=== PATIENT | female | born 1970 | race Caucasian/White ===

== ENCOUNTER 2020-07-05 10:48 | Inpatient (IN) | payer OTHER, SELFPAY ==
[2020-07-05] VITALS (16 sets, daily range): BP systolic 117–139; BP diastolic 47–94; PULSE 95–134; RESP 16–26; TEMP 36.4–36.9; O2SAT 85–96; BMI 32.3; BMI 31.4
--- NOTE | 2020-07-05 10:43 | ECG_ITS ---
APPROVED REPORT Exam: Resting ECG HR:133 bpm ECG Measurements Heart Rate 133 AXES VT 140 P 57 QRSd 78 QRS 41 QT 292 T 74 QTc 434 Conclusion Sinus tachycardia with fusion complexes Possible Anterior infarct, age undetermined Abnormal ECG Electronically signed by : Maxim Blanco, 07/06/2020 09:41:48
--- NOTE | 2020-07-05 10:48 | HMH.EDGENADL ---
ED Disposition Clinical Impression: Pneumonia Qualifiers: Pneumonia type: due to unspecified organism Laterality: right Lung location: lower lobe of lung Qualified Code(s): J18.9 - Pneumonia, unspecified organism Congestive heart failure Qualifiers: Heart failure type: unspecified Heart failure chronicity: acute Qualified Code(s): I50.9 - Heart failure, unspecified Respiratory failure with hypoxia Qualifiers: Chronicity: acute Qualified Code(s): J96.01 - Acute respiratory failure with hypoxia Disposition: Admitted As Inpatient Condition on Discharge: Fair - Critical Care Critical Care Time: Yes Attestation: On , the high probability of a clinically significant, sudden or life threatening deterioration of the following system(s) required my full and direct attention, intervention and personal management. The time I documented below is in addition to time spent performing reported procedures but includes the following listed in this critical care notation. Total Critical Care Time: 35 Vital system(s) involved:: Respiratory Failure My critical care processes included: Assessment & monitoring of V/S, Initial and Re-exams, Data Review/Interpretation, Coordinating Care, Medication Orders and management, Documentation Medical Decision Making - Medical Records Medical records reviewed: Yes: I reviewed the patient's medical records. - Jeffy Inquiry Pt receiving controlled substance: No Vital Signs: 07/05/20 10:48 07/05/20 11:11 07/05/20 11:45 Temperature 98.1 F Temperature Source Oral Pulse Rate Pulse Rate [Right] 134 H 111 H 120 H Respiratory Rate 26 H Blood Pressure Blood Pressure [Right Arm] 131/93 H 131/93 H 127/83 Blood Pressure Mean [Right Arm] 105 105 97 Blood Pressure Source [Right Arm] Automatic Cuff Automatic Cuff Blood Pressure Position [Right Arm] Sitting Sitting 02 Sat by Pulse Oximetry 85 L 93 L 96 Oxygen Delivery Method Room Air Nasal Cannula Nasal Cannula Oxygen Flow Rate (LPM) 2 2 07/05/20 12:02 07/05/20 12:31 07/05/20 13:00 Temperature Temperature Source Pulse Rate Pulse Rate [Right] 111 H 118 H 125 H Respiratory Rate 22 Blood Pressure Blood Pressure [Right Arm] 139/88 128/94 H 121/85 Blood Pressure Mean [Right Arm] 105 105 97 Blood Pressure Source [Right Arm] Automatic Cuff Automatic Cuff Blood Pressure Position [Right Arm] Sitting Sitting 02 Sat by Pulse Oximetry 95 95 96 Oxygen Delivery Method Nasal Cannula Nasal Cannula Nasal Cannula Oxygen Flow Rate (LPM) 2 2 2 07/05/20 13:13 07/05/20 14:00 07/05/20 14:23 Temperature 98.5 F Temperature Source Oral Pulse Rate Pulse Rate [Right] 114 H 114 H Respiratory Rate 22 Blood Pressure Blood Pressure [Right Arm] 119/47 L 117/88 Blood Pressure Mean [Right Arm] 71 97 Blood Pressure Source [Right Arm] Automatic Cuff Automatic Cuff Blood Pressure Position [Right Arm] Supine Sitting 02 Sat by Pulse Oximetry 96 95 Oxygen Delivery Method Room Air Room Air Nasal Cannula Oxygen Flow Rate (LPM) 2 07/05/20 14:32 07/05/20 14:33 Temperature 98.2 F Temperature Source Pulse Rate 112 H Pulse Rate [Right] Respiratory Rate 22 Blood Pressure 131/62 Blood Pressure [Right Arm] Blood Pressure Mean [Right Arm] Blood Pressure Source [Right Arm] Blood Pressure Position [Right Arm] 02 Sat by Pulse Oximetry Oxygen Delivery Method Nasal Cannula Nasal Cannula Oxygen Flow Rate (LPM) 2 - Lab Data Lab results reviewed: Yes: I reviewed the patient's lab results. Lab Results 07/05/20 10:50: ABG pH 7.26 L 07/05/20 10:53: WBC 11.0 H, RBC 5.25, Hgb 15.4, Hct 48.8 H, MCV 93.1, MCH 29.4, MCHC 31.6 L, RDW 13.3, Plt Count 284, MPV 8.7, Neut % (Auto) 62.0, Lymph % (Auto) 31.6, [place] % (Auto) 3.0, Eos % (Auto) 2.7, Baso % (Auto) 0.6, Neut # (Auto) 6.8, Lymph # (Auto) 3.5, [place] # (Auto) 0.3, Eos # (Auto) 0.3, Baso # (Auto) 0.1 07/05/20 10:53: Sodium 139, Potassium 4.0, Chloride 104, Carbon Dioxide
--- NOTE | 2020-07-05 10:49 | PC.NURSE ---
RT at bedside
--- NOTE | 2020-07-05 10:50 | XR_ITS ---
PROCEDURE: XR CHEST PORTABLE CLINICAL HISTORY: SOB Shortness of breath COMPARISON: No exams were available for comparison FINDINGS: There is cardiomegaly with borderline pulmonary venous congestion . Patchy density is present in the right lower lobe consistent with an area of infiltrate. No acute bony abnormalities. IMPRESSION: Borderline CHF with right lower lobe infiltrate Dictated by: Kavin Ledbettre MD 07/05/2020 12:13 Kavin Ledbetter MD in OV 07/05/2020 12:13
[2020-07-05 10:54] LABS: ABG PH 7.26 mmol/L (7.35-7.45)
[2020-07-05 11:03] LABS: ABG Base Excess -4.5 mmol/L (-2.4-2.3); ABG HCO3 22.5 mmhg (22.0-26.0); ABG Oxygen Saturation 97 % (90-100); ABG PH 7.26 mmol/L (7.35-7.45); ABG PO2 99.1 mmhg (80-100); ABG TCO2 24.1 mmhg (23-27)
[2020-07-05 11:04] LABS: Allen's Test Acceptable; Oxygen 3l %; Source Right Radial
[2020-07-05 11:05] LABS: ABG PCO2 50.9 mmhg (35.0-45.0)
[2020-07-05 11:06] LABS: Basophils # 0.1 K/mm3 (0-0.2); Basophils % 0.6 % (0.1-2.0); Eosinophils # 0.3 K/mm3 (0.0-0.4); Eosinophils % 2.7 % (0.1-12.0); Hematocrit 48.8 % (37.0-47.0); Hemoglobin 15.4 g/dL (12.2-16.2); Lymphocytes # 3.5 K/mm3 (0.7-4.5); Lymphocytes % 31.6 % (10-50); Mean Corpuscular HGB Conc 31.6 g/dL (31.8-35.4); Mean Corpuscular Hemoglobin 29.4 pg (27.0-31.2); Mean Corpuscular Volume 93.1 fl (81-99); Mean Platelet Volume 8.7 fl (7.4-10.4); Monocytes # 0.3 K/mm3 (0.1-1.0); Neutrophils # 6.8 K/mm3 (1.8-7.8); Platelet Count 284 K/mm3 (142-424); Red Blood Count 5.25 M/mm3 (4.20-5.40); Red Cell Distribution Width 13.3 % (11.5-17.5)
[2020-07-05 11:10] LABS: Chloride 104 mmol/L (98-107); Sodium 139 mmol/L (136-145)
--- NOTE | 2020-07-05 11:10 | PC.NURSE ---
Pt states she is able to breathe better at this time.
[2020-07-05 11:13] LABS: Alanine Aminotransferase 16 U/L (12-78); Albumin Level 4.3 g/dl (3.5-5.0); Albumin/Globulin Ratio 1.2 (1.1-1.8); Alkaline Phosphatase 102 U/L (38-126); Aspartate Amino Transferase 22 U/L (14-36); Bilirubin,Total 0.5 mg/dl (0.2-1.3); Blood Urea Nitrogen 10 mg/dl (7-17); Carbon Dioxide 26 mmol/L (22.0-30.0); Creatinine Clearance Estimated 135 mL/min (50-200); Estimated Glomerular Filt Rate 88 ml/min (>60); GFR (African American) 106 ML/MIN (>60); Globulin 3.7 g/dL (1.3-3.2)
[2020-07-05 11:14] LABS: Calcium 9.2 mg/dl (8.4-10.2); Glucose 166 mg/dl (74-100)
[2020-07-05 11:23] LABS: NT Pro Brain Natriuretic Pep. 731 pg/mL (0-125)
[2020-07-05 11:27] LABS: Troponin I < 0.01 ng/ml (0.00-0.034)
[2020-07-05 11:33] LABS: Coronavirus 19 IgG Antibody Negative (Negative); Coronavirus 19 IgM Antibody Negative (Negative)
--- NOTE | 2020-07-05 12:01 | PC.NURSE ---
Rad at bedside
--- NOTE | 2020-07-05 12:29 | PC.NURSE ---
ER speaking to Dr Miguel about pt. Dr Miguel is confectionery drops machine operator for service.
--- NOTE | 2020-07-05 12:35 | PC.NURSE ---
Bank Consultant aware of admission, she states as soon as pt's COVID swab is resulted he will give a bed assignment. Pt updated and aware it may take a little time to come back.
[2020-07-05 12:41] LABS: Adenovirus,PCR Not Detected (NotDetected); Bordetella Pertussis Not Detected (NotDetected); Chlamydophila Pneumoniae, PCR Not Detected (NotDetected); Coronavirus 19, PCR Not Detected (NotDetected); Coronavirus 229E Not Detected (NotDetected); Coronavirus NL63 Not Detected (NotDetected); Coronavirus OC43 Not Detected (NotDetected); Coronovirus HKU1,PCR Not Detected (NotDetected); Human Metapneumovirus Not Detected (NotDetected); Influenza A, PCR Not Detected (NotDetected); Influenza AH1, 2009 Not Detected (NotDetected); Influenza AH1, PCR Not Detected (NotDetected); Influenza AH3,PCR Not Detected (NotDetected); Influenza B, PCR Not Detected (NotDetected); Mycoplasma Pneumoniae, PCR Not Detected (NotDetected); Parainfluenza 1, PCR Not Detected (NotDetected); Parainfluenza 2, PCR Not Detected (NotDetected); Parainfluenza 3, PCR Not Detected (NotDetected); Parainfluenza 4, PCR Not Detected (NotDetected); Respiratory Syncytial Virus Not Detected (NotDetected); Rhinovirus/Enterovirus Not Detected (NotDetected)
--- NOTE | 2020-07-05 13:42 | PC.NURSE ---
PT AWAITING RESULTS FROM COVID TEST PRIOR TO ADMISSION
--- NOTE | 2020-07-05 14:14 | PC.NURSE ---
Report given to Jenn
--- NOTE | 2020-07-05 14:21 | PC.NURSE ---
Lab at bedside
--- NOTE | 2020-07-05 15:26 | PC.NURSE ---
REPORT RECEIVED FROM DECEMBER IN ER. PATIENT ARRIVED TO FLOOR AT 1452. MD TOBAR CALLED AND AWARE MD AT BEDSIDE ROUNDING AT 1514. PATIENT A&OX4. NO C/O PAIN. NO C/O SOA, COUGH. PATIENT ON 2LPM N/C. PATIENT UP AD FANNIE- STEADY GAIT. NO C/O PAINFUL BURNING URINATION PATIENT VOIDING FINE VIA RESTROOM. SKIN INTACT. SAFETY MEASURES IN PLACE NO ISSUES AT THIS TIME.
[2020-07-05 15:31] LABS: Troponin I 0.01 ng/ml (0.00-0.034)
--- NOTE | 2020-07-05 15:37 | HMH.HP ---
*Admission Date: 07/05/20 *Chief complaint: Shortness of breath *History of present illness: This is a 50-year-old white female with a history of hypertension and congestive heart failure who states that she has been more short of breath for the past week but since yesterday has been much worse and it is limiting her activities. She was hospitalized in 2011 with an episode of congestive heart failure but no clear etiology. Sounds as if she had an ischemic work-up including angiography which was negative. Since then she has used Lasix prn if she becomes short of breath. However the Lasix has not helped her symptoms this time. She denies cough, fever, hemoptysis, pleuritic chest pain, loss of taste or smell. She presented to the emergency room with these complaints and was worked up. Room air sat on arrival to the ER was 85%. She was placed on 2 L of nasal oxygen and her O2 sats have been stable in the 90s. White count was slightly elevated at 11,000. BNP was elevated at 731. Chest x-ray showed borderline CHF and a right lower lobe infiltrate. Blood gas showed pH 7.26 with a PCO2 of 50. COVID testing with serology and PCR both negative. [facility] History 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: Reports:: Congestive Heart Failure, Hypertension Denies:: Cancer, Diabetes Mellitus Type 1, Diabetes Mellitus Type 2, MRSA *Have you ever received a pneumonia vaccine?: No (refused) *Have you received a flu vaccine this season?: No Other Surgeries: Yes: Amputation: No - *Social History Last grade of school completed: High school graduate Smoking Status: Former smoker Alcohol Intake: never Substance Use Type: denies use *Occupational Status:: employed Household Members: significant other *Travel in the last 8 weeks: None Family Hx:: Diabetes, Heart Attack, Hyperlipidemia, Hypertension, Kidney Disease, Stroke Review of Systems - Constitutional Denies body ache(s), Denies chills - Eyes Denies change in vision - ENT Reports hoarseness, Denies nasal discharge - *Cardiovascular Reports shortness of breath with activity, Denies chest pain, Denies rapid, pounding, or irregular heartbeat, Denies foot swelling - *Respiratory Denies chest congestion, Denies cough, Denies coughing up blood - *Gastrointestinal Denies abdominal pain, Denies loose stools, Denies heartburn, Denies black, tarry stools - *Genitourinary Denies abnormal periods, Denies painful urination - *Musculoskeletal Denies joint pain - *Neurologic Denies confusion, Denies dizziness Meds Home Medications Medication Instructions Recorded Confirmed Type aspirin 81 mg tablet,delayed 81 mg PO DAILY 07/10/18 07/05/20 History release cetirizine 10 mg capsule 10 mg PO DAILY 07/10/18 07/05/20 History furosemide 20 mg tablet 20 mg PO DAILY 07/10/18 07/05/20 History lisinopril 10 mg tablet 10 mg PO DAILY 07/10/18 07/05/20 History Allergies Allergy/AdvReac Type Severity Reaction Status Date / Time No Known Allergies Allergy Verified 07/05/20 11:04 Exam Vital signs and Labs for Last 24 Hours: Temp Pulse Resp BP Pulse Ox 98.2 F 112 H 22 131/62 95 07/05/20 14:33 07/05/20 14:33 07/05/20 14:33 07/05/20 14:33 07/05/20 15:23 Laboratory Results - last 24 hr 07/05/20 10:50: ABG pH 7.26 L 07/05/20 10:53: WBC 11.0 H, RBC 5.25, Hgb 15.4, Hct 48.8 H, MCV 93.1, MCH 29.4, MCHC 31.6 L, RDW 13.3, Plt Count 284, MPV 8.7, Neut % (Auto) 62.0, Lymph % (Auto) 31.6, [place] % (Auto) 3.0, Eos % (Auto) 2.7, Baso % (Auto) 0.6, Neut # (Auto) 6.8, Lymph # (Auto) 3.5, [place] # (Auto) 0.3, Eos # (Auto) 0.3, Baso # (Auto) 0.1 07/05/20 10:53: Sodium 139, Potassium 4.0, Chloride 104, Carbon Dioxide 26, Anion Gap 13.0, BUN 10, Creatinine 0.70, Estimated Creat Clear 135, Estimated GFR 88, Est GFR ( Amer) 106, Glucose 166 H, Calcium 9.2, Total Bilirubin 0.5, AST 22, ALT 16, Alkaline Phosphatase 102, Troponin I < 0.01, Total Protein 8.0, Albumin 4.3, Globulin 3.7 H, Albumin/Globulin Ratio 1
--- NOTE | 2020-07-05 16:59 | PC.NURSE ---
visitor at bedside, safety measures in place. no issues at this time.
[2020-07-05 17:59] LABS: Troponin I 0.03 ng/ml (0.00-0.034)
[2020-07-06] VITALS (14 sets, daily range): BP systolic 104–145; BP diastolic 53–86; PULSE 80–120; RESP 18–20; TEMP 36.6–36.8; O2SAT 95–98; BMI 31.3
[2020-07-06 06:50] LABS: Basophils % 0.1 % (0.1-2.0); Eosinophils # 0.2 K/mm3 (0.0-0.4); Eosinophils % 1.3 % (0.1-12.0); Hematocrit 42.7 % (37.0-47.0); Lymphocytes # 0.9 K/mm3 (0.7-4.5); Lymphocytes % 5.6 % (10-50); Mean Corpuscular Hemoglobin 29.1 pg (27.0-31.2); Monocytes # 0.2 K/mm3 (0.1-1.0); Monocytes % 1.3 % (1.7-9.3); Neutrophils # 15.1 K/mm3 (1.8-7.8); Neutrophils % 91.7 % (37.0-80.0); Platelet Count 225 K/mm3 (142-424); Red Cell Distribution Width 13.3 % (11.5-17.5); White Blood Count 16.5 K/mm3 (4.8-10.8)
[2020-07-06 06:51] LABS: Hemoglobin 13.7 g/dL (12.2-16.2)
[2020-07-06 06:52] LABS: MANUAL DIFFERENTIAL MANUAL DIFFERENTIAL (MANUAL DIFF)
[2020-07-06 06:53] LABS: Chloride 102 mmol/L (98-107); Potassium 3.7 mmoL/L (3.5-5.1); Sodium 138 mmol/L (136-145)
[2020-07-06 06:56] LABS: Anion Gap 14.7 mEq/L (5-15); Blood Urea Nitrogen 13 mg/dl (7-17); Carbon Dioxide 25 mmol/L (22.0-30.0); Creatinine Clearance Estimated 153 mL/min (50-200); Estimated Glomerular Filt Rate 105 ml/min (>60); GFR (African American) 127 ML/MIN (>60); Glucose 197 mg/dl (74-100)
[2020-07-06 07:02] LABS: Lymphocytes % 4 % (10-50); Neutrophils % 92 % (42-76); Platelet Estimate Normal; RBC Morphology Normal; Total Cells Counted 100
--- NOTE | 2020-07-06 08:15 | PC.NURSE ---
RT sent sputum sample to lab @ 8345
--- NOTE | 2020-07-06 09:13 | HMH.PHAVTE ---
[facility] Pharm[facility] VTE Monitoring - Patient Demographics Admission date: 07/06/20 Report Date: 07/06/20 Time: 09:13 Allergies/Adverse Reactions: Patient Allergies No Known Allergies Allergy (Verified 07/05/20 11:04) Height: 1.68 m Weight: 88.451 kg Patient Problems: Current Active Problems Pneumonia (Acute) Congestive heart failure (Acute) Respiratory failure with hypoxia (Acute) Right lower lobe pneumonia (Acute) Hypertension (Acute) Hypoxemia (Acute) - VTE Risk Labs: VTE Related Lab Results Hgb 13.7 g/dL (12.2-16.2) D 07/06/20 06:33 Hct 42.7 % (37.0-47.0) 07/06/20 06:33 Plt Count 225 K/mm3 (142-424) 07/06/20 06:33 BUN 13 mg/dl (7-17) D 07/06/20 06:33 Creatinine 0.60 mg/dl (0.52-1.04) 07/06/20 06:33 Estimated Creat Clear 153 mL/min (50-200) 07/06/20 06:33 Was VTE Risk Assessment Performed: Yes VTE Score: 4 VTE Risk Level: Low Risk - Prophylaxis Types of VTE Prophylaxis: TEDS Knee High (FRANCISCO HOSE ORDERED)
--- NOTE | 2020-07-06 09:17 | HMH.ACPN2 ---
Internal Medicine - PN: Subj *Date: 07/06/20 *Time: 09:17 Interval history: States she is breathing better today. No heaviness in her chest. She still denies any cough. No chest pain. Exam Vital signs and Labs for Last 24 Hours: Temp Pulse Resp BP Pulse Ox 98.0 F 110 H 20 134/78 97 07/06/20 07:53 07/06/20 08:10 07/06/20 07:53 07/06/20 07:53 07/06/20 08:10 Laboratory Results - last 24 hr 07/05/20 10:50: ABG pH 7.26 L 07/05/20 10:53: WBC 11.0 H, RBC 5.25, Hgb 15.4, Hct 48.8 H, MCV 93.1, MCH 29.4, MCHC 31.6 L, RDW 13.3, Plt Count 284, MPV 8.7, Neut % (Auto) 62.0, Lymph % (Auto) 31.6, [place] % (Auto) 3.0, Eos % (Auto) 2.7, Baso % (Auto) 0.6, Neut # (Auto) 6.8, Lymph # (Auto) 3.5, [place] # (Auto) 0.3, Eos # (Auto) 0.3, Baso # (Auto) 0.1 07/05/20 10:53: Sodium 139, Potassium 4.0, Chloride 104, Carbon Dioxide 26, Anion Gap 13.0, BUN 10, Creatinine 0.70, Estimated Creat Clear 135, Estimated GFR 88, Est GFR ( Amer) 106, Glucose 166 H, Calcium 9.2, Total Bilirubin 0.5, AST 22, ALT 16, Alkaline Phosphatase 102, Troponin I < 0.01, Total Protein 8.0, Albumin 4.3, Globulin 3.7 H, Albumin/Globulin Ratio 1.2 07/05/20 10:53: Lactate 2.0 07/05/20 10:53: NT-Pro-B Natriuret Pep 731 H 07/05/20 10:53: SARS-CoV-2 IgG Ab (Rapid) Negative, SARS-CoV-2 IgM Ab (Rapid) Negative 07/05/20 11:01: Specimen Source Right radial, O2 % 3l, ABG pH 7.26 L, ABG pCO2 50.9 H, ABG pO2 99.1, ABG HCO3 22.5, ABG Total CO2 24.1, ABG O2 Saturation 97, ABG Base Excess -4.5 L, Kavin Test Acceptable 07/05/20 12:34: Chlamy pneumoniae PCR Not detected, Adenovirus (PCR) Not detected, B. pertussis DNA (PCR) Not detected, Coronavirus OC43 (PCR) Not detected, Coronavirus HKU1 (PCR) Not detected, Coronavirus 229E (PCR) Not detected, SARS-CoV-2 (PCR) Not detected, Coronavirus NL63 (PCR) Not detected, Human Metapneumovir PCR Not detected, Influenza A (H1) PCR Not detected, Influ A (H1N1/09) PCR Not detected, Influenza A (H3) PCR Not detected, Influenza Type A (PCR) Not detected, Influenza Type B (PCR) Not detected, M. pneumoniae (PCR) Not detected, Parainfluenza 1 (PCR) Not detected, Parainfluenza 2 (PCR) Not detected, Parainfluenza 3 (PCR) Not detected, Parainfluenza 4 (PCR) Not detected, RSV (PCR) Not detected, Entero/Rhino (PCR) Not detected 07/05/20 14:20: Troponin I 0.01 07/05/20 16:20: Troponin I 0.03 07/06/20 06:33: Sodium 138, Potassium 3.7, Chloride 102, Carbon Dioxide 25, Anion Gap 14.7, BUN 13 D, Creatinine 0.60, Estimated Creat Clear 153, Estimated GFR 105, Est GFR ( Amer) 127, Glucose 197 H, Calcium 9.0 07/06/20 06:33: WBC 16.5 H D, RBC 4.70, Hgb 13.7 D, Hct 42.7, MCV 91.0, MCH 29.1, MCHC 32.0, RDW 13.3, Plt Count 225, MPV 8.0, Neut % (Auto) 91.7 H, Lymph % (Auto) 5.6 L, [place] % (Auto) 1.3 L, Eos % (Auto) 1.3, Baso % (Auto) 0.1, Neut # (Auto) 15.1 H, Lymph # (Auto) 0.9, [place] # (Auto) 0.2, Eos # (Auto) 0.2, Baso # (Auto) 0.0, Total Counted 100, Neutrophils % (Manual) 92 H, Band Neutrophils % 4.0, Lymphocytes % (Manual) 4 L, Platelet Estimate Normal, RBC Morphology Normal I & O for Last 24 hours: Intake & Output 07/03/20 07/04/20 07/05/20 07/06/20 11:59 11:59 11:59 11:59 Intake Total 820 / 820 Balance 820 / 820 Weight 200 lb 195 lb Microbiology Reports for the Last 24 Hours: Microbiology 07/06/20 08:15 Sputum - Expectorated Sputum Gram Stain - Final 07/06/20 08:15 Sputum - Expectorated Sputum Sputum Culture - Final Narrative: She is alert and oriented and in no distress. Color is normal. Lungs are clear to auscultation. Heart is regular with no murmurs or ectopy. Extremities no edema. Assessment and Plan (1) Right lower lobe pneumonia Status: Acute Category: Medical Code(s): J18.9 - Pneumonia, unspecified organism (2) Hypoxemia Status: Acute Category: Medical Code(s): R09.02 - Hypoxemia (3) Congestive heart failure Status: Acute Qualifiers: Heart failure type: unspecified Heart failure chronicity:
--- NOTE | 2020-07-06 15:26 | PC.NURSE ---
Spoke with Suzanne Metz about Duo nebs, pt stated that she felt that they were increasing her HR. RN going to call doctor and see if we can get it switched to a different medication.
--- NOTE | 2020-07-06 17:59 | PC.NURSE ---
PT IS SITTING ON THE SOB WITH FAMILY IN THE ROOM. EARLY THIS MORNING WHEN PT HAD ROCEPHIN RUNNING HER FACE AND NECK BECAME FLUSHED AND SHE WAS REAL JITTERY. PT HAD ROCEPHIN YESTERDAY AND DID NOT HAVE ANY ISSUES. HEART RATE WAS ALSO ELEVATED. PT RECEIVED AN ALBUTEROL TREATMENT A FEW MIN BEFORE THE ELEVATED HR/FLUSHED FACE. WAS ON THE FLOOR AT THE TIME AND STATED TO CONTINUE TO MONITOR PT. WHEN PT GOT THE NEXT ALBUTEROL TREATMENT SHE EXPERIENCED THE SAME SIDE EFFECTS. CALLED AND HE STATED TO SWITCH TREATMENTS TO XOPENEX. PT HAS BEEN UP IN THE ROOM AMBULATING ALL SHIFT. NO COMPLAINTS OF SOA. O2 SATURATION HAS MAINTAINED 92-95% ON RA T/O THE SHIFT. EATING AND DRINKING WELL. WILL CONTINUE TO MONITOR.
--- NOTE | 2020-07-06 20:06 | PC.NURSE ---
late entry 0600 patent has rested well throughout shift. has denied and soa, remained on 1 l nc per patient request with sats greater than 92%, breath sounds diminished bilateral bases, telemetry monitor show sr. ambulates in room, voids in toilet clear yellow urine. has voiced zero c/opain, nausea or vomiting
--- NOTE | 2020-07-06 22:07 | ECG_ITS ---
APPROVED REPORT Exam: Resting ECG HR:105 bpm ECG Measurements Heart Rate 105 AXES QRSd 94 QRS 19 QT 362 T 73 QTc 478 Conclusion Atrial flutter with variable AV block with premature ventricular or aberrantly conducted complexes Abnormal ECG Electronically signed by : Maxim Blanco, 07/07/2020 15:08:50
--- NOTE | 2020-07-06 22:27 | PC.NURSE ---
2200 patient rang out with call light stating she felt her heart pounding and being extremely shaky. vs obtained bp 149/103, hr 141, rr 18, 96% r/a. patient complained [place] teletypesetter monitor reviewed and showed atrial flutter at 149. stat ekg done, dr. ba reviewed and confirmed atrial flutter. episode lasted less than 10 min before returning to [facility]. dr. alarcon paged and notified of vs, new onset cardiac changes and symptoms. new order to stop breathing treatments. informed patient of plan of care, patient became very tearful stating it just freaked me out . allowed patient to express feelings and answered any questions. rn assured her that teletypesetter monitor is being watched continuously and encouraged her to call out with any further symptoms.
[2020-07-06 22:39] LABS: POC Glucose,Bedside 259 (70-110)
[2020-07-07] VITALS (12 sets, daily range): BP systolic 93–147; BP diastolic 61–96; PULSE 70–120; RESP 18–24; TEMP 36.6–37; O2SAT 94–97; BMI 31.5
--- NOTE | 2020-07-07 04:47 | PC.NURSE ---
patient has had no further c/o of heart fluttering or shakiness. classroom monitor has shown episodes where patient will flip into atrial flutter but only last a few minutes. breath sounds remain diminished in the bases. was on r/a until heart fluttering episode earlier. patient request at that time to have o2 back, sats were 96% on r/a. had no c/o nausea, vomiting or diarrhea. voiding clear yellow urine
--- NOTE | 2020-07-07 07:00 | CA_ITS ---
APPROVED REPORT EXAM: Comprehensive 2D, Doppler, and color-flow Echocardiogram Racecar Driver: Mica Kendall CRT Ht: 5 ft 6 in Wt: 194lbs BSA: 1.97 BP: 131/62 mmHg Indications: Congestive Heart Failure, Shortness of Breath, Atrial Flutter, Hypertension/HDD 2D Dimensions LVOT 2.10 cm (M/F) 1.5-2.5 M-Mode Dimensions RVDd 2.00 cm (0.9-2.6) LA Diam 3.84 cm (1.9-4.0) LVDd 6.77 cm (3.5-5.7) Ao Diam 3.21 cm (2.0-3.7) LVDs 5.89 cm (3.5-5.7) IVSd 0.74 cm (0.6-1.1) PWd 0.80 cm (0.6-1.1) EF (Teich) 27.20% FS 13.00% EDV (Teich) 236.90 mL ESV (Teich) 172.50 mL Aortic Valve AO Peak GR. 6.30 mmHg Pulmonary Valve PV Peak Velocity 139.00 (50-150 cm/s) Tricuspid Valve TR P. Velocity 74.00 cm/s RAP Estimate 10.00 mmHg RVSP 12.20 mmHg Left Ventricle Left atrium is mildly enlarged, left ventricle is mildly dilated, there is mild concentric left ventricular hypertrophy, severe reduced left ventricular systolic function, visually estimated ejection fraction approximately 25 to 30%, left ventricle is globally hypokinetic, there is echodensity present in the left ventricular apex raising the concerns for presence of apical thrombus, repeat study with Definity contrast is recommended. Right Ventricle Right atrium and right ventricle are normal size and contractility. Aortic Valve Aortic valve is minimally thickened and fibrosed, there is no aortic stenosis or aortic insufficiency. Mitral Valve Mitral valve leaflets are minimally thickened, there is no mitral stenosis, there is moderate mitral regurgitation. Tricuspid Valve Tricuspid valve is grossly normal, there is mild tricuspid regurgitation, tricuspid regurgitation jet velocity is inadequate for calculation of the right ventricular systolic pressure. Pulmonic Valve Pulmonic valve is poorly visualized. Great Vessels Aortic root is normal size. Pericardium No significant pericardial effusion noted. Conclusion 1. Mildly enlarged left atrium, dilated left ventricle, reduced left ventricular systolic function, visually estimated ejection fraction 25 to 30%, left ventricle is globally hypokinetic, possibility of left ventricular apical thrombus cannot be excluded, a repeat study with Definity contrast is recommended , diastolic parameters are inconclusive. 2. Moderate mitral and mild tricuspid regurgitation. 3. No significant pericardial effusion noted. Electronically signed by : Vivek Matt, 07/07/2020 19:57:16
--- NOTE | 2020-07-07 08:44 | HMH.CNCARD ---
History of Present Illness Consult date: 07/07/20 Requesting physician: Ronald Miguel Consult reason: congestive heart failure Chief complaint: SOA Additional 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:: 1. History of congestive heart failure and cardiomyopathy, 2012, negative work-up including angiogram per patient. 2. Hypertension 3. History of tobacco use, discontinued 2011 4. Obesity 5. Psoriasis for which she takes Taltz History of present illness: This is a 50-year-old white female with a history of hypertension and congestive heart failure who states that she has been more short of breath for the past week but since yesterday has been much worse and it is limiting her activities. She was hospitalized in 2012 with an episode of congestive heart failure but no clear etiology. Sounds as if she had an ischemic work-up including angiography which was negative. Since then she has used Lasix prn if she becomes short of breath. However the Lasix has not helped her symptoms this time. She denies cough, fever, hemoptysis, pleuritic chest pain, loss of taste or smell. She presented to the emergency room with these complaints and was worked up. Room air sat on arrival to the ER was 85%. She was placed on 2 L of nasal oxygen and her O2 sats have been stable in the 90s. White count was slightly elevated at 11,000. BNP was elevated at 731. Chest x-ray showed borderline CHF and a right lower lobe infiltrate. Blood gas showed pH 7.26 with a PCO2 of 50. COVID testing with serology and PCR both negative. The above for Dr. Miguel Patient confirms diagnosis of congestive heart failure with work-up in 2012 including angiogram without etiology. It was suspected that she had a viral myocarditis and was offered transfer to for further evaluation but declined stating I am not can to be a guinea pig. 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 She does take Lasix as needed for shortness of breath. [facility] History 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: Reports:: Congestive Heart Failure, Hypertension Denies:: Cancer, Diabetes Mellitus Type 1, Diabetes Mellitus Type 2, MRSA *Have you ever received a pneumonia vaccine?: No (refused) *Have you received a flu vaccine this season?: No Other Surgeries: Yes: Amputation: No - *Social History Last grade of school completed: High school graduate Smoking Status: Former smoker Alcohol Intake: never Substance Use Type: denies use *Occupational Status:: employed Household Members: significant other *Travel in the last 8 weeks: None Family Hx:: Diabetes, Heart Attack, Hyperlipidemia, Hypertension, Kidney Disease, Stroke Meds Home Medications Medication Instructions Recorded Confirmed Type aspirin 81 mg tablet,delayed 81 mg PO DAILY 07/10/18 07/05/20 History release cetirizine 10 mg capsule 10 mg PO DAILY 07/10/18 07/05/20 History furosemide 20 mg tablet 20 mg PO DAILY 07/10/18 07/05/20 History lisinopril 10 mg tablet 10 mg PO DAILY 07/10/18 07/05/20 History Ixekizumab [Taltz Syringe] 80 mg SQ MONTHLY 07/06/20 07/06/20 History Allergies Allergy/AdvReac Type Severity Reaction Status Date / Time No Known Allergies Allergy Verified 07/05/20 11:04 Exam Vital signs and Labs for Last 24 Hours: Temp Pulse Resp BP Pulse Ox 98.3 F 103 H 20 147/96 H 96 07/07/20 07:29 07/07/20 07:56 07/07/20 07:29 07/07/20 07:29 07/07/20 07:56 Laboratory Results - last 24 hr 07/06/20 22:20: POC Glucose 259 H I & O for Last 24 hours: Intake & Output 07/04/20 07/05/20 07/06/20 07/07/20 11:59 11:59 11:59 11:59 Intake Total 820 / 820 520 / 520 Balance 820 / 820 520 / 520 Weight 200 lb 195 lb 196 lb 5 oz Microbiology Reports for the Last 24 Hours: Microbiology 07/06/20 08:15 Sputum - Expectorated Sputum Gram Stain - Final 07/06/20 08:15 Sputum - Expectorated Sputum Sputum Culture - Final - Constitutional no acute distress - *Routine Neck Ex
--- NOTE | 2020-07-07 09:28 | HMH.ACPN2 ---
<Linda Andrade - Last Filed: 07/07/20 09:28> Internal Medicine - PN: Subj *Date: 07/07/20 *Time: 08:05 Interval history: Pt is sitting up on the side of the bed without complaint other than SOBOE. She reports nebs treatments were discontinued overnight due to concern for palpitations and she has had no further episodes. She ate well and has been voiding qshift. Exam Vital signs and Labs for Last 24 Hours: Temp Pulse Resp BP Pulse Ox 98.3 F 103 H 20 147/96 H 96 07/07/20 07:29 07/07/20 07:56 07/07/20 07:29 07/07/20 07:29 07/07/20 07:56 Laboratory Results - last 24 hr 07/06/20 22:20: POC Glucose 259 H I & O for Last 24 hours: Intake & Output 07/04/20 07/05/20 07/06/20 07/07/20 11:59 11:59 11:59 11:59 Intake Total 820 / 820 520 / 520 Balance 820 / 820 520 / 520 Weight 200 lb 195 lb 196 lb 5 oz Microbiology Reports for the Last 24 Hours: Microbiology 07/06/20 08:15 Sputum - Expectorated Sputum Gram Stain - Final 07/06/20 08:15 Sputum - Expectorated Sputum Sputum Culture - Final - Constitutional no acute distress - *Routine HEENT Exam Head: Present: normocephalic ENT: Present: mucous membranes moist - *Routine Respiratory Exam Absent: respiratory distress Comments: generally diminished with few scattered wheezes, RLL fine rales - *Routine Cardiovascular Exam Present: RRR - *Routine Abdominal Exam Present: soft, normoactive bowel sounds. Absent: tenderness, distended, guarding, firm, rigid - *Routine Extremities Exam Present: full ROM, pulses intact. Absent: edema, calf tenderness - *Routine Neurological Exam Present: alert, oriented X3, moving all extremities, normal speech Assessment and Plan (1) Right lower lobe pneumonia Status: Acute Category: Medical Code(s): J18.9 - Pneumonia, unspecified organism (2) Hypoxemia Status: Acute Category: Medical Code(s): R09.02 - Hypoxemia (3) Congestive heart failure Status: Acute Qualifiers: Heart failure type: unspecified Heart failure chronicity: acute Qualified Code(s): I50.9 - Heart failure, unspecified Category: Medical Code(s): I50.9 - Heart failure, unspecified (4) Hypertension Status: Acute Category: Medical Code(s): I10 - Essential (primary) hypertension (5) Cardiomyopathy Status: Acute Category: Medical Code(s): I42.9 - Cardiomyopathy, unspecified - Assessment and plan all Dx Assessment and Plan for all problems:: Cardiology note seen and appreciated. Further per Dr. Miguel. <Ronald Miguel - Last Filed: 07/07/20 11:17> Internal Medicine - PN: Subj *Date: 07/07/20 *Time: 11:15 Exam Vital signs and Labs for Last 24 Hours: Temp Pulse Resp BP Pulse Ox 98.6 F 120 H 24 123/89 95 07/07/20 11:07 07/07/20 11:07 07/07/20 11:07 07/07/20 11:07 07/07/20 11:07 Laboratory Results - last 24 hr 07/06/20 22:20: POC Glucose 259 H I & O for Last 24 hours: Intake & Output 07/04/20 07/05/20 07/06/20 07/07/20 11:59 11:59 11:59 11:59 Intake Total 820 / 820 520 / 520 Balance 820 / 820 520 / 520 Weight 200 lb 195 lb 196 lb 5 oz Microbiology Reports for the Last 24 Hours: Microbiology 07/05/20 10:53 Blood Blood Culture - Preliminary NO GROWTH AFTER 48 HOURS 07/05/20 10:53 Blood Blood Culture - Preliminary NO GROWTH AFTER 48 HOURS 07/06/20 08:15 Sputum - Expectorated Sputum Gram Stain - Final 07/06/20 08:15 Sputum - Expectorated Sputum Sputum Culture - Final Assessment and Plan (1) Right lower lobe pneumonia Status: Acute Category: Medical Code(s): J18.9 - Pneumonia, unspecified organism (2) Hypoxemia Status: Acute Category: Medical Code(s): R09.02 - Hypoxemia (3) Congestive heart failure Status: Acute Qualifiers: Heart failure type: unspecified Heart failure chronicity: acute Qualified Code(s): I50.9
--- NOTE | 2020-07-07 10:42 | PC.NURSE ---
patient did have 3 unmeasured voids before urine collection hat was placed in commode. educated on importance of measuring urine.
--- NOTE | 2020-07-07 13:51 | PC.NURSE ---
called and spoke with md office at this time. stated that the patient blood culture bottles came back postive only showing rare gram positive cocci in pairs. they stated they would report this to
--- NOTE | 2020-07-07 15:50 | PC.NURSE ---
patient has done well this shift. has been up in room walking in room independently. earlier in shift some complaints of shortness of breath which has resolved. heart rate at times noted to be 120s and briefly hit 130 however, returned back within patient normal limits. it has remained regular. lungs at beginning had scattered wheezing which at this time is resolved. face has been slightly red at times. some complaints about tape being itchy/irritating. did place 1 l of o2 on briefly at beginning of shift but has not required it since. patient also complained of having a slight bloody nose/ sore throat. she has ate and drank well. good results with lasix. lots of education done with patient on plan of care and new medications. rings out as needed. will continue to monitor.
--- NOTE | 2020-07-07 19:16 | PC.NURSE ---
report given to king
--- NOTE | 2020-07-07 20:52 | PC.NURSE ---
She is A&Ox4. Took a shower and shaved for possible heart cath in the morning. She is hopeful that she will have the heart cath in the morning. Denies SOA. Denies palpitations. Denies weakness. Reports last BM on 07/07/20. She continues on RA at this time.
[2020-07-08] VITALS (24 sets, daily range): BP systolic 92–140; BP diastolic 60–92; PULSE 60–106; RESP 16–20; TEMP 36.6–36.7; O2SAT 92–99; BMI 31.5
--- NOTE | 2020-07-08 | IR_ITS ---
APPROVED REPORT Patient Location: Inpatient PROCEDURES Active coronary angiogram INDICATION New onset cardiomyopathy with ejection fraction 25% Informed consent was obtained prior to the procedure. COMPLICATIONS NONE Estimated Blood Loss: LESS THAN 10 ML TECHNIQUE One percent lidocaine used to anesthetize the right anterior aspect of the wrist. The right radial artery was accessed via the Seldinger technique. A 6 [place] sheath was placed in the right radial artery. 2.5 mg of verapamil, 800 mcg of nitroglycerin, 1mg Lidocaine and 5000 U Heparin were given through the arterial sheath. The trap catheter was also used to perform selective coronary angiogram. At the end of the procedure the sheath was removed good hemostasis was achieved using Traclet band, patient was transferred to the postop holding area in stable condition. ANGIOGRAPHIC RESULTS The left main artery Normal The left anterior descending artery Has proximal tandem 30% stenoses The circumflex artery Dominant with mild luminal irregularities The right coronary artery Large dominant with proximal tandem 30% stenoses The VELASCO ventriculogram reveals Not performed The left ventricular end-diastolic pressure Not measured IMPRESSION Mild to moderate nonflow-limiting coronary artery disease which does not explain patient's cardiomyopathy PLAN 1. Treatment of underlying cardiomyopathy 2. Standard risk factor modification for coronary artery disease 3. LDL goal less than 55 Electronically signed by : Albino Beltrán, 07/08/2020 11:13:35
--- NOTE | 2020-07-08 04:27 | PC.NURSE ---
She states she has been laying flat during the night. She is awake laying on her left side at this time on her computer. No acute changes. She has voided 200mL since receiving aldactone. Her urine is dark yellow, clear.
[2020-07-08 06:28] LABS: Basophils % 0.1 % (0.1-2.0); Eosinophils # 0.1 K/mm3 (0.0-0.4); Eosinophils % 0.3 % (0.1-12.0); Hematocrit 43.9 % (37.0-47.0); Hemoglobin 14.2 g/dL (12.2-16.2); Lymphocytes # 2.8 K/mm3 (0.7-4.5); Lymphocytes % 14.2 % (10-50); Mean Corpuscular HGB Conc 32.4 g/dL (31.8-35.4); Mean Corpuscular Volume 89.6 fl (81-99); Mean Platelet Volume 8.5 fl (7.4-10.4); Monocytes # 0.7 K/mm3 (0.1-1.0); Monocytes % 3.4 % (1.7-9.3); Neutrophils # 16.1 K/mm3 (1.8-7.8); Neutrophils % 81.9 % (37.0-80.0); Platelet Count 244 K/mm3 (142-424); Red Cell Distribution Width 13.8 % (11.5-17.5); White Blood Count 19.6 K/mm3 (4.8-10.8)
[2020-07-08 06:48] LABS: MANUAL DIFFERENTIAL MANUAL DIFFERENTIAL (MANUAL DIFF)
[2020-07-08 06:54] LABS: Chloride 98 mmol/L (98-107); Potassium 3.5 mmoL/L (3.5-5.1); Sodium 139 mmol/L (136-145)
[2020-07-08 06:57] LABS: Anion Gap 14.5 mEq/L (5-15); Blood Urea Nitrogen 25 mg/dl (7-17); Carbon Dioxide 30 mmol/L (22.0-30.0); Creatinine Clearance Estimated 132 mL/min (50-200); Estimated Glomerular Filt Rate 88 ml/min (>60); GFR (African American) 106 ML/MIN (>60)
[2020-07-08 06:58] LABS: Calcium 8.7 mg/dl (8.4-10.2); Glucose 146 mg/dl (74-100)
--- NOTE | 2020-07-08 07:31 | CA_ITS ---
APPROVED REPORT EXAM: Comprehensive 2D, Doppler, and color-flow Echocardiogram Night Shift Supervisor: Mica Kendall CRT Ht: 5 ft 6 in Wt: 194lbs BSA: 1.97 BP: 131/62 mmHg Indications: Shortness of Breath R06.02, Hypertension I10, chf, aflutter Echo Enhancing Agent Indication: Rule out thrombus Agent(s) / Amount(s) Used: Definity 2 cc Comments: Definity exam Conclusion 1. Limited Definity contrast study was performed. 2. The left ventricle is severely globally hypokinetic, ejection fraction approximately 25%, no left ventricular thrombus seen. Electronically signed by : Vivek Matt, 07/08/2020 19:08:15
--- NOTE | 2020-07-08 07:37 | P.PN_ITS ---
Subjective Date: 07/08/20 Time: 07:37 Principal diagnosis: CHF, Cardiomyopathy Interval history: 50 yo WF in bed in NAD. Patient had significant diuresis yesterday and is feeling much better today. Breathing has improved and she was able to lie flat overnight without difficulty. Echocardiogram report shows an EF of 25 to 30%, moderate mitral regurgitation and possible LV thrombus. Limited echo with Definity contrast will be performed today for further evaluation. Exam Vital signs and Labs for Last 24 Hours: Temp Pulse Resp BP Pulse Ox 98.0 F 70 18 111/73 99 07/08/20 04:00 07/08/20 04:00 07/08/20 04:00 07/08/20 04:00 07/08/20 04:00 Laboratory Results - last 24 hr 07/08/20 05:48: WBC 19.6 H, RBC 4.90, Hgb 14.2, Hct 43.9, MCV 89.6, MCH 29.0, MCHC 32.4, RDW 13.8, Plt Count 244, MPV 8.5, Neut % (Auto) 81.9 H, Lymph % (Auto) 14.2, [place] % (Auto) 3.4, Eos % (Auto) 0.3, Baso % (Auto) 0.1, Neut # (Auto) 16.1 H, Lymph # (Auto) 2.8, [place] # (Auto) 0.7, Eos # (Auto) 0.1, Baso # (Auto) 0.0 07/08/20 05:48: Sodium 139, Potassium 3.5, Chloride 98, Carbon Dioxide 30, Anion Gap 14.5, BUN 25 H D, Creatinine 0.70, Estimated Creat Clear 132, Estimated GFR 88, Est GFR ( Amer) 106, Glucose 146 H, Calcium 8.7 I & O for Last 24 hours: Intake & Output 07/05/20 07/06/20 07/07/20 07/08/20 11:59 11:59 11:59 11:59 Intake Total 820 / 820 520 / 520 350 / 350 Output Total 6250 / 6250 Balance 820 / 820 520 / 520 -5900 / -5900 Weight 200 lb 195 lb 196 lb 5 oz 196 lb 3 oz Microbiology Reports for the Last 24 Hours: Microbiology 07/05/20 10:53 Blood Blood Culture - Preliminary 07/06/20 08:15 Sputum - Expectorated Sputum Gram Stain - Final 07/06/20 08:15 Sputum - Expectorated Sputum Sputum Culture - Final 07/05/20 10:53 Blood Blood Culture - Preliminary NO GROWTH AFTER 48 HOURS - Constitutional no acute distress - *Routine Respiratory Exam Present: CTA bilaterally - *Routine Cardiovascular Exam Present: RRR - *Routine Extremities Exam Absent: cyanosis, clubbing, edema - *Routine Neurological Exam Present: alert, oriented X3 Progress Note: A&P (1) Right lower lobe pneumonia Status: Acute (2) Hypoxemia Status: Acute (3) Congestive heart failure Status: Acute (4) Hypertension Status: Acute (5) Cardiomyopathy Status: Acute Assessment and Plan for All Diagnoses:: 1. Congestive heart failure, significant diuresis on IV Lasix and p.o. michelle nolactone. 2. Severe cardiomyopathy with ejection fraction 25-30%, Entresto will start tonight with consideration for carvedilol therapy tomorrow if blood pressure tolerates. History of nonischemic cardiomyopathy, 2011. Plan to proceed with repeat cardiac catheterization today. Continue aspirin therapy at this time. Patient will need LifeVest prior to discharge. 3. Possible left ventricular thrombus, repeat echo with Definity contrast will be performed today 4. Pneumonia, right lower lobe with elevated white count, on antibiotic therapy
[2020-07-08 08:14] LABS: Lymphocytes % 19 % (10-50); Monocytes % 5 % (2-9); Neutrophils % 76 % (42-76); Platelet Estimate Normal; RBC Morphology Normal; Total Cells Counted 100
--- NOTE | 2020-07-08 08:24 | HMH.ACPN2 ---
<Sera Retana - Last Filed: 07/08/20 08:24> Internal Medicine - PN: Subj *Date: 07/08/20 *Time: 08:24 Interval history: States she feels so much better today. She denies shortness of breath and chest pain. She did diurese 6+ liters yesterday without weight loss. She ambulates without difficulty. She is eating well. Per cardiology: Repeat echocardiogram showed an EF of 25 to 30% with Moderate mitral regurgitation and possible LV thrombus. Plan is to repeat limited echo today for further evaluation and also to to proceed with left cardiac catheterization today Exam Vital signs and Labs for Last 24 Hours: Temp Pulse Resp BP Pulse Ox 98.1 F 84 17 108/71 L 97 07/08/20 07:44 07/08/20 07:44 07/08/20 07:44 07/08/20 07:44 07/08/20 07:44 Laboratory Results - last 24 hr 07/08/20 05:48: WBC 19.6 H, RBC 4.90, Hgb 14.2, Hct 43.9, MCV 89.6, MCH 29.0, MCHC 32.4, RDW 13.8, Plt Count 244, MPV 8.5, Neut % (Auto) 81.9 H, Lymph % (Auto) 14.2, [place] % (Auto) 3.4, Eos % (Auto) 0.3, Baso % (Auto) 0.1, Neut # (Auto) 16.1 H, Lymph # (Auto) 2.8, [place] # (Auto) 0.7, Eos # (Auto) 0.1, Baso # (Auto) 0.0, Total Counted 100, Neutrophils % (Manual) 76, Lymphocytes % (Manual) 19, Monocytes % (Manual) 5, Platelet Estimate Normal, RBC Morphology Normal 07/08/20 05:48: Sodium 139, Potassium 3.5, Chloride 98, Carbon Dioxide 30, Anion Gap 14.5, BUN 25 H D, Creatinine 0.70, Estimated Creat Clear 132, Estimated GFR 88, Est GFR ( Amer) 106, Glucose 146 H, Calcium 8.7 I & O for Last 24 hours: Intake & Output 07/05/20 07/06/20 07/07/20 07/08/20 11:59 11:59 11:59 11:59 Intake Total 820 / 820 520 / 520 350 / 350 Output Total 6250 / 6250 Balance 820 / 820 520 / 520 -5900 / -5900 Weight 200 lb 195 lb 196 lb 5 oz 196 lb 3 oz Microbiology Reports for the Last 24 Hours: Microbiology 07/05/20 10:53 Blood Blood Culture - Preliminary 07/06/20 08:15 Sputum - Expectorated Sputum Gram Stain - Final 07/06/20 08:15 Sputum - Expectorated Sputum Sputum Culture - Final 07/05/20 10:53 Blood Blood Culture - Preliminary NO GROWTH AFTER 48 HOURS - Constitutional no acute distress Comments: Sitting on the bedside and appears comfortable. - *Routine Respiratory Exam Present: crackles (Throughout on the right posteriorly) - *Routine Cardiovascular Exam Present: RRR Comments: Monitor showing sinus rhythm at this time - *Routine Abdominal Exam Present: soft, normoactive bowel sounds. Absent: tenderness - *Routine Extremities Exam Absent: edema, calf tenderness - *Routine Neurological Exam Present: alert, oriented X3 Assessment and Plan (1) Right lower lobe pneumonia Status: Acute Category: Medical Code(s): J18.9 - Pneumonia, unspecified organism (2) Hypoxemia Status: Acute Category: Medical Code(s): R09.02 - Hypoxemia (3) Congestive heart failure Status: Acute Qualifiers: Heart failure type: unspecified Heart failure chronicity: acute Qualified Code(s): I50.9 - Heart failure, unspecified Category: Medical Code(s): I50.9 - Heart failure, unspecified (4) Hypertension Status: Acute Category: Medical Code(s): I10 - Essential (primary) hypertension (5) Cardiomyopathy Status: Acute Category: Medical Code(s): I42.9 - Cardiomyopathy, unspecified - Assessment and plan all Dx Assessment and Plan for all problems:: Continue with pulmonary care. She will have a repeat echo today. Plan is for heart cath as well. <Ronald Miguel - Last Filed: 07/08/20 14:02> Internal Medicine - PN: Subj *Date: 07/08/20 *Time: 14:01 Exam Vital signs and Labs for Last 24 Hours: Temp Pulse Resp BP Pulse Ox 98.1 F 90 18 115/81 96 07/08/20 07:44 07/08/20 12:25 07/08/20 12:25 07/08/20 12:25 07/08/20 12:25 Laboratory Results - last 24 hr 07/08/20 05:48: WBC 19.6 H, RBC 4.90, Hgb 14.2, Hct 43.9, MCV 89.6, MCH 29.0, MCHC
--- NOTE | 2020-07-08 10:45 | PC.NURSE ---
Pt off floor to cath lab tech at this time, bedside report given to Shawn Fernandez RN
--- NOTE | 2020-07-08 15:12 | PC.NURSE ---
Patient is s/p cardiac cath, did not require any interventions. Pt is to be fitted for life vest prior to discharge. Pt remains alert and oriented x4, perrla, senior business intelligence analyst equal, no deficits noted, HR reg, no edema noted, lung sounds are diminished t/o, on RA, abd soft and nontender, active bowel sounds in all quads, reports last BM was yesterday, voids per BR independently, urine is yellow and clear, peripheral pulses 2+, ambulates independently, denies any pain or SOA this shift, right radial cath site cdi with no bleeding or hematoma noted, vss, will continue to monitor.
--- NOTE | 2020-07-08 19:16 | PC.NURSE ---
report given to king
[2020-07-09] VITALS: PULSE 80
[2020-07-09 04:00] VITALS: BP 94/58; PULSE 74; PULSE 80; RESP 19; TEMP 36.6; O2SAT 94
--- NOTE | 2020-07-09 04:31 | PC.NURSE ---
shift summary patient has rested well thoughout night. patient started new medications tonight causing lower blood pressures and heart rates then previous days. has had no complaints of palpitation, soa, nausea, vomiting or diarrhea. sats have remained greater than 92% on r/a. breath sounds clear throughout all guevara. vineyard supervisor has been showing sr. clear yellow urine.
[2020-07-09 05:17] VITALS: BMI 30.9
[2020-07-09 08:00] VITALS: BP 122/72; PULSE 82; PULSE 90; RESP 18; TEMP 36.8; O2SAT 96
--- NOTE | 2020-07-09 08:20 | HMH.ACPN ---
Internal Medicine - PN: Subj *Date: 07/09/20 *Time: 08:20 Exam Vital signs and Labs for Last 24 Hours: Temp Pulse Resp BP Pulse Ox 98.2 F 82 18 122/72 96 07/09/20 08:00 07/09/20 08:00 07/09/20 08:00 07/09/20 08:00 07/09/20 08:00 I & O for Last 24 hours: Intake & Output 07/06/20 07/07/20 07/08/20 07/09/20 23:59 23:59 23:59 23:59 Intake Total 1040 / 1040 340 / 340 780 / 780 240 / 240 Output Total 5850 / 5850 2550 / 2550 Balance 1040 / 1040 -5510 / -5510 -1770 / -1770 240 / 240 Weight 88.451 kg 89 kg 88.989 kg 87.146 kg Microbiology Reports for the Last 24 Hours: Microbiology 07/05/20 10:53 Blood Blood Culture - Preliminary Assessment and Plan (1) Right lower lobe pneumonia Status: Acute Category: Medical Code(s): J18.9 - Pneumonia, unspecified organism (2) Hypoxemia Status: Acute Category: Medical Code(s): R09.02 - Hypoxemia (3) Congestive heart failure Status: Acute Qualifiers: Heart failure type: unspecified Heart failure chronicity: acute Qualified Code(s): I50.9 - Heart failure, unspecified Category: Medical Code(s): I50.9 - Heart failure, unspecified (4) Hypertension Status: Acute Category: Medical Code(s): I10 - Essential (primary) hypertension (5) Cardiomyopathy Status: Acute Category: Medical Code(s): I42.9 - Cardiomyopathy, unspecified The patient's infection will respond to the chosen ABx?: Yes Is the patient receiving the right drug, dose, and route?: Yes Could a more targeted ABx be ordered?: No
--- NOTE | 2020-07-09 08:33 | HMH.ACPN2 ---
<Sera Retana - Last Filed: 07/09/20 08:33> Internal Medicine - PN: Subj *Date: 07/09/20 *Time: 08:33 Interval history: Patient states she feels fine today. She is not short of breath at rest or with exertion. She denies chest pain. She had a repeat echocardiogram yesterday which did not show ventricular thrombus. She also had a cardiac cath with the following results: IMPRESSION Mild to moderate nonflow-limiting coronary artery disease which does not explain patient's cardiomyopathy PLAN 1. Treatment of underlying cardiomyopathy 2. Standard risk factor modification for coronary artery disease 3. LDL goal less than 55 Exam Vital signs and Labs for Last 24 Hours: Temp Pulse Resp BP Pulse Ox 98.2 F 82 18 122/72 96 07/09/20 08:00 07/09/20 08:00 07/09/20 08:00 07/09/20 08:00 07/09/20 08:00 I & O for Last 24 hours: Intake & Output 07/06/20 07/07/20 07/08/20 07/09/20 11:59 11:59 11:59 11:59 Intake Total 820 / 820 520 / 520 350 / 350 1010 / 1010 Output Total 7100 / 7100 1300 / 1300 Balance 820 / 820 520 / 520 -6750 / -6750 -290 / -290 Weight 195 lb 196 lb 5 oz 196 lb 3 oz 192 lb 2 oz Microbiology Reports for the Last 24 Hours: Microbiology 07/05/20 10:53 Blood Blood Culture - Preliminary Assessment and Plan (1) Right lower lobe pneumonia Status: Acute Category: Medical Code(s): J18.9 - Pneumonia, unspecified organism (2) Hypoxemia Status: Acute Category: Medical Code(s): R09.02 - Hypoxemia (3) Congestive heart failure Status: Acute Qualifiers: Heart failure type: unspecified Heart failure chronicity: acute Qualified Code(s): I50.9 - Heart failure, unspecified Category: Medical Code(s): I50.9 - Heart failure, unspecified (4) Hypertension Status: Acute Category: Medical Code(s): I10 - Essential (primary) hypertension (5) Cardiomyopathy Status: Acute Category: Medical Code(s): I42.9 - Cardiomyopathy, unspecified - Assessment and plan all Dx Assessment and Plan for all problems:: Continue with pulmonary care. Patient to placed LifeVest today. Is followed by cardiology as well. <Ronald Miguel - Last Filed: 07/09/20 10:01> Internal Medicine - PN: Subj *Date: 07/09/20 *Time: 10:00 Exam Vital signs and Labs for Last 24 Hours: Temp Pulse Resp BP Pulse Ox 98.2 F 82 18 122/72 96 07/09/20 08:00 07/09/20 08:00 07/09/20 08:00 07/09/20 08:00 07/09/20 08:00 I & O for Last 24 hours: Intake & Output 07/06/20 07/07/20 07/08/20 07/09/20 11:59 11:59 11:59 11:59 Intake Total 820 / 820 520 / 520 350 / 350 1010 / 1010 Output Total 7100 / 7100 1300 / 1300 Balance 820 / 820 520 / 520 -6750 / -6750 -290 / -290 Weight 195 lb 196 lb 5 oz 196 lb 3 oz 192 lb 2 oz Microbiology Reports for the Last 24 Hours: Microbiology 07/05/20 10:53 Blood Blood Culture - Preliminary Assessment and Plan (1) Right lower lobe pneumonia Status: Acute Category: Medical Code(s): J18.9 - Pneumonia, unspecified organism (2) Hypoxemia Status: Acute Category: Medical Code(s): R09.02 - Hypoxemia (3) Congestive heart failure Status: Acute Qualifiers: Heart failure type: unspecified Heart failure chronicity: acute Qualified Code(s): I50.9 - Heart failure, unspecified Category: Medical Code(s): I50.9 - Heart failure, unspecified (4) Hypertension Status: Acute Category: Medical Code(s): I10 - Essential (primary) hypertension (5) Cardiomyopathy Status: Acute Category: Medical Code(s): I42.9 - Cardiomyopathy, unspecified - Assessment and plan all Dx Assessment and Plan for all problems:: Patient seen and examined. She rested well last night and states she is feeling good today. Results of heart cath noted. Plan is to fit her for a LifeVest today and should be ready for discharge pending any further cardiology recommendations.
[2020-07-09 09:55] VITALS: BP 94/66; PULSE 92; TEMP 36.8; O2SAT 96
--- NOTE | 2020-07-09 10:03 | HMH.PNCARD ---
Subjective Date: 07/09/20 Time: 09:45 Principal diagnosis: CHF, Cardiomyopathy Interval history: This is a 50-year-old white female who was admitted to the hospital with shortness of breath. The patient was diuresed with IV Lasix. She had an echocardiogram which showed an ejection fraction of 25 to 30% with moderate mitral regurgitation and possible LV thrombus. She had a repeat echo yesterday with Definity contrast, which showed an ejection fraction of 25% with no LV thrombus. She did undergo left cardiac catheterization which showed mild to moderate nonocclusive coronary artery disease. The patient is being treated for dilated cardiomyopathy with carvedilol, Entresto, Lasix and Aldactone. She is tolerating these medications well. Her blood pressure is on the lower side this morning and she states that she does have some nausea right after taking the medicines but this does improve. She denies any chest pain or pressure. She states that her shortness of breath is better. She denies any lower extremity edema. She denies any fever, chills, vomiting, diarrhea, PND or orthopnea. Exam Vital signs and Labs for Last 24 Hours: Temp Pulse Resp BP Pulse Ox 98.2 F 82 18 122/72 96 07/09/20 08:00 07/09/20 08:00 07/09/20 08:00 07/09/20 08:00 07/09/20 08:00 I & O for Last 24 hours: Intake & Output 07/06/20 07/07/20 07/08/20 07/09/20 23:59 23:59 23:59 23:59 Intake Total 1040 / 1040 340 / 340 780 / 780 240 / 240 Output Total 5850 / 5850 2550 / 2550 Balance 1040 / 1040 -5510 / -5510 -1770 / -1770 240 / 240 Weight 195 lb 196 lb 3.382 oz 196 lb 3 oz 192 lb 2 oz Microbiology Reports for the Last 24 Hours: Microbiology 07/05/20 10:53 Blood Blood Culture - Preliminary Narrative: Her telemetry strip is sinus rhythm with a rate of 82. Echo with Definity contrast shows: 1. Limited Definity contrast study was performed. 2. The left ventricle is severely globally hypokinetic, ejection fraction approximately 25%, no left ventricular thrombus seen. Cardiac catheterization shows: ANGIOGRAPHIC RESULTS The left main artery Normal The left anterior descending artery Has proximal tandem 30% stenoses The circumflex artery Dominant with mild luminal irregularities The right coronary artery Large dominant with proximal tandem 30% stenoses The VELASCO ventriculogram reveals Not performed The left ventricular end-diastolic pressure Not measured IMPRESSION Mild to moderate nonflow-limiting coronary artery disease which does not explain patient's cardiomyopathy PLAN 1. Treatment of underlying cardiomyopathy 2. Standard risk factor modification for coronary artery disease 3. LDL goal less than 55 - Constitutional no acute distress, obese - *Routine HEENT Exam Head: Present: normocephalic, atraumatic Eye: Present: EOMI, PERRL ENT: Present: mucous membranes moist - *Routine Neck Exam Present: supple, full ROM, normal carotid upstroke. Absent: JVD, carotid bruit, lymphadenopathy - *Routine Respiratory Exam Present: CTA bilaterally - *Routine Cardiovascular Exam Present: RRR, Normal S1, Normal S2, murmur - *Routine Abdominal Exam Present: soft, normoactive bowel sounds. Absent: tenderness, distended, rebound - *Routine Extremities Exam Present: full ROM, pulses intact, normal capillary refill. Absent: cyanosis, clubbing, edema - *Routine Skin Exam Present: intact, warm. Absent: erythema, rash - *Routine Neurological Exam Present: alert, oriented X3, CN II-XII intact. Absent: sensory deficit, motor deficit Progress Note: A&P (1) Systolic congestive heart failure Status: Acute (2) LV dysfunction Status: Acute (3) Right lower lobe pneumonia Status: Acute (4) Hypoxemia Status: Acute (5) Congestive heart failure Status: Acute (6) Hypertension Status: Acute (7) Cardiomyopathy Status: Acute (8) Coronary artery disease Status: Chronic (9) Hyperlipidemia S
--- NOTE | 2020-07-09 10:08 | PC.NURSE ---
pt reports that she is feeling nauseated and funny. She was started on new po meds this morning. Judy Garcia APRN @ BS. SBP 94 secondary to AM meds. Is afebrile. All other vitals WNL. Judy Garcia APRN explained in detail pt's cardiology assessment and answered all questions that pt had.
[2020-07-09 12:00] VITALS: BP 108/70; PULSE 100; RESP 18; TEMP 36.7; O2SAT 95
--- NOTE | 2020-07-09 13:14 | PC.NURSE ---
late entry for 1100: received call from Dr. Miguel with discharge orders. Pt is not to leave until fitted for a life vest. Cardiology aware.
[2020-07-09 14:02] VITALS: PULSE 90
--- NOTE | 2020-07-09 14:49 | PC.NURSE ---
Darell Kline @ fitting pt for a life vest. Tele leads taken off for fitting. Pt will discharge home after fitting.
--- NOTE | 2020-07-10 11:35 | HMH.DCSUM ---
General - General Admission date:: 07/05/20 <Ronald Miguel - 07/12/20 09:02> 07/05/20 <RetanaSera holder - 07/10/20 12:10> Discharge date: 07/09/20 <Sera Retana - 07/10/20 12:10> HPI HPI: This is a 50-year-old white female with a history of hypertension and congestive heart failure who stated that she had been more short of breath for the past week but since the previous day had been much worse and it was limiting her activities. She was hospitalized in 2011 with an episode of congestive heart failure but no clear etiology. It sounded as if she had an ischemic work-up including angiography which was negative. Since then she had used Lasix prn if she became short of breath. However the Lasix did not helped her symptoms this time. She denied cough, fever, hemoptysis, pleuritic chest pain, loss of taste or smell. She presented to the emergency room with these complaints and was worked up. Room air sat on arrival to the ER was 85%.She was placed on 2 L of nasal oxygen and her O2 sats stablelized in the 90s. White count was slightly elevated at 11,000. BNP was elevated at 731. Chest x-ray showed borderline CHF and a right lower lobe infiltrate. Blood gas showed pH 7.26 with a PCO2 of 50. COVID testing with serology and PCR both negative. <Sera Retana - 07/10/20 12:10> Hospital Course Hospital Course: Patient was started on a Zithromax and ceftriaxone on admission for her pneumonia. She was eventually placed on Coreg 3.125 twice daily and spironolactone 25 mg twice daily along with 40 of Lasix twice daily. Sputum and blood cultures were negative. Patient did begin to breathe better. She continually denied cough. She had no further heaviness in her chest. Patient was seen by cardiology with impression of congestive heart failure with severe cardiomyopathy with preliminary echo showing ejection fraction less than 20%. Lisinopril was discontinued and after 36 hours she was started on Entresto 24?26 twice daily. Lasix was changed to IV administration and spironolactone was added. When CHF improved then Coreg was to be added as blood pressure allowed. Patient did continue to breathe better but was short of breath on exertion. Her duo nebs were discontinued due to heart palpitations after which she had no further episodes. surveillance monitor at that time did show intermittent atrial flutter. Repeat Echocardiogram did show an ejection fraction of 25 to 30% with moderate mitral regurgitation and possible left ventricular thrombus. Focused ECHO was repeated and thrombus was ruled out. On 07/08/2020 she was feeling much better and denied shortness of breath and chest pain. She did diurese 6+ liters the previous day. She was ambulating without difficulty. She was eating well. Cardiac cath revealed nonflow limiting coronary artery disease. On 07/09 patient was stable. Patient was fitted with a LifeVest after which she was ready to be discharged. Patient was discharged on this day in stable condition. She iwas to continue with a low-salt diet and meds as per cardiology to include Xarelto, spironolactone, carvedilol, Lasix 40 twice daily, and Ceftin for her pneumonia. Follow-up with cardiology on 07/21/2020. <Sera Retana - 07/10/20 12:10> Objective Vital signs: Temp Pulse Resp BP Pulse Ox 98.1 F 90 18 108/70 L 95 07/09/20 12:00 07/09/20 14:02 07/09/20 12:00 07/09/20 12:00 07/09/20 12:00 <Ronald Miguel - 07/12/20 09:02> Temp Pulse Resp BP Pulse Ox 98.1 F 90 18 108/70 L 95 07/09/20 12:00 07/09/20 14:02 07/09/20 12:00 07/09/20 12:00 07/09/20 12:00 <Sera Retana - 07/10/20 12:10> Narrative: Exam Vital signs and Labs for Last 24 Hours: Temp Pulse Resp BP Pulse Ox 98.1 F 84 17 108/71 L 97 07/08/20 07:44 07/08/20 07:44 07/08/20 07:44 07/08/20 07:44 07/08/20 07:44 Laboratory Results - last 24 hr 07/08/20 05:48: WBC 19.6
== END 2020-07-09 16:17 | disposition home or self-care (01) | DRG 286 ==
LOC: ER 12:35 → 2ND 13:09
PROVIDERS: Internal Medicine; Admitting Provider Family Medicine; Emergency Provider Emergency Medicine; Visit Provider Family Medicine
PROC: 4A023N7 Measurement of Cardiac Sampling and Pressure, Left Heart, Percutaneous Approach (ICD-10-PCS; principal; 2020-07-08 12:00)
DX: I11.0 Hypertensive heart disease with heart failure (principal); I50.21 Acute systolic (congestive) heart failure; J18.9 Pneumonia, unspecified organism; I42.9 Cardiomyopathy, unspecified; Z82.49 Family history of ischemic heart disease and other diseases of the circulatory system; Z79.82 Long term (current) use of aspirin; Z79.899 Other long term (current) drug therapy; I25.10 Atherosclerotic heart disease of native coronary artery without angina pectoris; E78.5 Hyperlipidemia, unspecified
CPT/HCPCS: 36415; 71045; 80048; 80053; 82803; 82962; 83605; 83880; 84484; 85007; 85025; 86328; 87040; 87077; 87186; 87205; 87581; 87633; 87798; 93005; 93306; 93308; 93458; 94640; 94761; 96365; 96367; 96375; 99152; 99285; C1725; C1769; J0456; J1644; Q9957; Q9967

== ENCOUNTER → 2020-07-21 11:36 | Outpatient (CLI) | payer OTHER, SELFPAY ==
[2020-07-21 15:53] LABS: Chloride 94 mmol/L (98-107); Sodium 138 mmol/L (136-145)
[2020-07-21 15:54] LABS: Potassium 4.5 mmoL/L (3.5-5.1)
[2020-07-21 15:56] LABS: Blood Urea Nitrogen 16 mg/dl (7-17); Estimated Glomerular Filt Rate 66 ml/min (>60); GFR (African American) 80 ML/MIN (>60)
[2020-07-21 15:57] LABS: Anion Gap 15.5 mEq/L (5-15); Calcium 9.7 mg/dl (8.4-10.2); Carbon Dioxide 33 mmol/L (22.0-30.0); Glucose 172 mg/dl (74-100)
== END ==
PROVIDERS: Visit Provider Physician Assistant
DX: E78.5 Hyperlipidemia, unspecified (principal); I10 Essential (primary) hypertension; I25.10 Atherosclerotic heart disease of native coronary artery without angina pectoris; I42.9 Cardiomyopathy, unspecified; I50.9 Heart failure, unspecified; J18.9 Pneumonia, unspecified organism; R06.00 Dyspnea, unspecified
CPT/HCPCS: 36415; 80048

== ENCOUNTER 2020-08-05 10:23 | Outpatient (RCR) | payer OTHER, SELFPAY | END 2020-09-09 15:19 | disposition home or self-care (01) | LOC: PT 10:23 | PROVIDERS: Visit Provider Physician Assistant | DX: I25.10 Atherosclerotic heart disease of native coronary artery without angina pectoris (principal); R06.00 Dyspnea, unspecified; I42.9 Cardiomyopathy, unspecified; I50.9 Heart failure, unspecified ==

== ENCOUNTER → 2020-08-21 07:50 | Outpatient (CLI) | payer OTHER, SELFPAY ==
--- NOTE | 2020-08-21 | CA_ITS ---
APPROVED REPORT EXAM: Comprehensive 2D, Doppler, and color-flow Echocardiogram Cath Lab Nurse: Mica Kendall CRT Ht: 5 ft 6 in Wt: 200lbs BSA: 2.00 BP: 131/62 mmHg Indications: HTN, CHF, SOB, aflutter, EF 25-30% on echo 07/08/20, currently wearing lifevest, limited EF check only M-Mode Dimensions RVDd 1.71 cm (0.9-2.6) LVDd 6.17 cm (3.5-5.7) LVDs 5.71 cm (3.5-5.7) IVSd 0.71 cm (0.6-1.1) PWd 0.50 cm (0.6-1.1) EF (Teich) 16.30% FS 7.50% EDV (Teich) 191.90 mL ESV (Teich) 160.70 mL Conclusion 1. Limited Definity contrast study was obtained to evaluate for left ventricular systolic function. 2. The left ventricle is mildly dilated, visually estimated ejection fraction 25% with left ventricular global hypokinesis, there is no left ventricular thrombus seen. Electronically signed by : Vivek Matt, 08/21/2020 14:03:01
== END ==
PROVIDERS: PCP Nurse Practitioner Family; Visit Provider Internal Medicine
DX: I42.9 Cardiomyopathy, unspecified (principal)
CPT/HCPCS: 93308; Q9957

== ENCOUNTER → 2020-08-26 13:44 | Outpatient (CLI) | payer OTHER, SELFPAY ==
[2020-08-26 13:48] LABS: MANUAL DIFFERENTIAL MANUAL DIFFERENTIAL (MANUAL DIFF)
[2020-08-26 14:43] LABS: HCG Qualitative, Serum Negative (Negative)
[2020-08-26 14:49] LABS: Basophils % 0.5 % (0.1-2.0); Eosinophils # 0.2 K/mm3 (0.0-0.4); Eosinophils % 1.8 % (0.1-12.0); Hematocrit 39.8 % (37.0-47.0); Hemoglobin 13.5 g/dL (12.2-16.2); Lymphocytes # 2.3 K/mm3 (0.7-4.5); Lymphocytes % 26.1 % (10-50); Mean Corpuscular HGB Conc 33.8 g/dL (31.8-35.4); Mean Corpuscular Hemoglobin 29.9 pg (27.0-31.2); Mean Corpuscular Volume 88.4 fl (81-99); Mean Platelet Volume 8.5 fl (7.4-10.4); Monocytes # 0.3 K/mm3 (0.1-1.0); Monocytes % 3.2 % (1.7-9.3); Neutrophils # 5.9 K/mm3 (1.8-7.8); Neutrophils % 68.3 % (37.0-80.0); Platelet Count 266 K/mm3 (142-424); Red Blood Count 4.51 M/mm3 (4.20-5.40); Red Cell Distribution Width 14.5 % (11.5-17.5); White Blood Count 8.6 K/mm3 (4.8-10.8)
[2020-08-26 14:51] LABS: Alanine Aminotransferase 16 U/L (12-78); Albumin Level 4.6 g/dl (3.5-5.0); Alkaline Phosphatase 83 U/L (38-126); Aspartate Amino Transferase 24 U/L (14-36); Bilirubin,Direct 0.2 mg/dl (0.0-0.4); Bilirubin,Indirect 0.6 mg/dL (0.0-0.9); Bilirubin,Total 0.8 mg/dl (0.2-1.3); Bilirubin,Unconjugated 0.6 mg/dL (0.0-1.1); Chol/HDL Ratio 5.7 (1-3.5); Cholesterol 187 mg/dl (140-200); HDL Cholesterol 33 mg/dl (40-60); Total Protein,Serum 7.8 g/dl (6.3-8.2); Triglycerides 258 mg/dl (30-150); VLDL Cholesterol 52 mg/dL (0-40)
[2020-08-26 14:52] LABS: Anion Gap 14.5 mEq/L (5-15); Blood Urea Nitrogen 18 mg/dl (7-17); Calcium 9.7 mg/dl (8.4-10.2); Carbon Dioxide 31 mmol/L (22.0-30.0); Chloride 96 mmol/L (98-107); Estimated Glomerular Filt Rate 75 ml/min (>60); GFR (African American) 91 ML/MIN (>60); Glucose 205 mg/dl (74-100); Potassium 4.5 mmoL/L (3.5-5.1); Sodium 137 mmol/L (136-145)
[2020-08-26 15:02] LABS: Direct LDL Cholesterol 109.97 mg/dL (100-129)
[2020-08-26 15:16] LABS: Eosinophils % 1 % (0-3); Lymphocytes % 36 % (10-50); Monocytes % 1 % (2-9); Neutrophils % 62 % (42-76); Platelet Estimate Normal; RBC Morphology Normal; Total Cells Counted 100
[2020-08-26 15:30] LABS: Coronavirus 19 IgG Antibody Negative (Negative); Coronavirus 19 IgM Antibody Negative (Negative)
== END ==
PROVIDERS: Internal Medicine; Visit Provider Physician Assistant
DX: I25.10 Atherosclerotic heart disease of native coronary artery without angina pectoris (principal); E78.5 Hyperlipidemia, unspecified; Z79.899 Other long term (current) drug therapy; Z01.818 Encounter for other preprocedural examination; Z03.818 Encounter for observation for suspected exposure to other biological agents ruled out
CPT/HCPCS: 36415; 80048; 80061; 80076; 84703; 85007; 85014; 85018; 85048; 85049; 86328

== ENCOUNTER 2020-08-27 08:46 | Day surgery (SDC) | payer OTHER, SELFPAY ==
--- NOTE | 2020-08-27 | IR_ITS ---
APPROVED REPORT Patient Location: Outpatient Telegraph Repeater Mechanic: LENIN Copeland RT (R) PROCEDURES 1. Pocket formation for AICD. 2. Placement of atrial sensing and pacing coil into the right atrial appendage. 3. Placement of a ventricular sensing, pacing and shocking coil in the right ventricular apex. 4. Permanent AICD placement. INDICATION Systolic Congestive Heart Failure, ejection < 35%, [place] Heart Assoication Class 3 Congestive Heart Failure Informed consent was obtained prior to the procedure. COMPLICATIONS None Estimated Blood Loss: Less than 10 mls TECHNIQUE 1% Lidocaine with epinephrine used to anesthetized the left anterior aspect of the chest. Scalpel was used to make the initial cutaneous incision while electrocautery was used to dissect down tinto the fascia. The fascia was lifted off the pectoralis muscle and digitally manipulated creating a pocket for the defibrillator. The patient was then placed in Trendelenburg position and the subclavian vein was accessed 3 times via the Selinger technique. A 8 [place] sheath was placed under fluoroscopic guidance into the subclavian vein. The dilator was removed from the sheath. Using fluoroscopic guidance, the ventricular lead was placed into the right ventricular apex, screwed and secured into place. Electronic interrogation proved acceptable thresholds and voltage within the lead. Using 3-0 silk, the ventricular lead was then secured into place and sheath peeled away. Following this, a 9.5 [place] sheath and dilator was then placed over one of the wires while keeping the other wire in place within the subclavian vein. The dilator was removed from the sheath. Using fluoroscopic guidance, contrast was used to visualize the coronary sinus, the left ventricular lead was placed into the coronary sinus. Electronic interrogation proved acceptable thresholds and voltage within the lead. Using 3-0 silk, the left ventricular lead was then secured into place and sheath peeled away.An additional 6 [place] fresh sheath and dilator was placed over the existing wire. Using fluoroscopic guidance, the atrial lead was then placed into the right atrial appendage and screwed and secured in place. Electrical interrogation demonstrated acceptable thresholds and voltage number. The atrial lead was then secured into place using 3-0 silk and sheath peeled away. 1 gram of Ancef was used to flush the pocket. All 3 leads were connected to generator and tested via computer. The defibrillator then secured to the fascia. Monocryl was used to close the subcutaneous layers while clifton were used to close the cutaneous layer. A pressure dressing was placed and the patient was transferred to the postop holding area in stable condition for postoperative care. INTERROGATION Generator Model number: KOSTA MAXWELL ICD DR, D233 Generator Serial number: [id number] Atrial lead model number: INGEVITY + IS-1, 7840 Atrial lead serial number: [id number] P-wave: 0.5mV Threshold: 3.5V@0.4ms Right Ventricular lead model number: RELIANCE 4-FRONT, 0675 Right Ventricular lead serial number: [id number] R-wave: 0.5mV Threshold: 3.5V@0.4ms Pacing Parameters: Mode: DDD RYTHMIQ: AAI with VVI Backup Base/Max Track: 60ppm/130ppm ICD Rate Cutoffs: VT: 180 bpm, 10 sec., ATP 41J x 6 VF: 210 bpm, 5 sec., Quick Convert 41J x 8 No diaphragmatic stimulation at 10 volts. IMPRESSION 1. Successful pocket formation for AICD. 2. Successful placement of atrial sensing and pacing coil into the right atrial appendage. 3. Successful placement of a ventricular sensing, pacing and shocking coil in the right ventricular apex. 4. Successful permanent AICD placement.
[2020-08-27 08:57] VITALS: BMI 32.8
[2020-08-27 09:11] VITALS: BP 129/62; PULSE 77; RESP 13; TEMP 36.7; O2SAT 97
[2020-08-27 11:52] VITALS: BP 123/58; PULSE 77; RESP 18; O2SAT 98
--- NOTE | 2020-08-27 11:52 | XR_ITS ---
PROCEDURE: XR CHEST PORTABLE CLINICAL HISTORY: Confirm pacemaker/AID placement COMPARISON: CR XR CHEST PORTABLE from 07/05/2020 FINDINGS: Bipolar pacemaker is present from left subclavian approach with a right atrial and right ventricular lead which appears to be in good position. There is no evidence of pneumothorax. The lungs are clear without infiltrates, suspicious nodules, or pleural effusions. No acute bony abnormalities. IMPRESSION: Status post pacemaker insertion as described above Dictated by: Kavin Ledbetter MD 08/27/2020 12:51 Kavin Ledbetter MD in OV 08/27/2020 12:51
[2020-08-27 12:10] VITALS: BP 133/55; PULSE 75; RESP 20; O2SAT 98
[2020-08-27 12:25] VITALS: BP 117/57; PULSE 67; RESP 22; O2SAT 98
[2020-08-27 12:40] VITALS: BP 128/62; PULSE 75; RESP 20; O2SAT 98
--- NOTE | 2020-08-27 12:57 | HMH.ANESCL ---
[facility] Anesthesia Checklist - Patient Identification Patient Identification: Arm Band - Structural Data Admitted From: Home Planned Operative Procedure/s: Dual Chamber AICD placement Consent for Planned Operative Procedure(s) Verified: Yes Verified Documents: Surgical Consent, History and Physical - NPO Status Verified Time NPO: 00:00 - Additional verifications Anesthesia Reactions: No - Airway Assessment C-Spine Mobility Assessed: Yes (mp2) TMJ Mobility Assessed: Yes Dentition: Good Dentition - Neurological Assessment Level of Consciousness: Awake, Alert - Anesthesia Plan Anesthesia Risk discussed: Yes Anesthesia Plan: Verified ASA Class: III Anesthesia Type: MAC [facility] History I have reviewed the patient's past medical history: Yes 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: Reports:: Cardiomyopathy, Congestive Heart Failure, Coronary Artery Disease, Hyperlipidemia, Hypertension Denies:: Cancer, Diabetes Mellitus Type 1, Diabetes Mellitus Type 2, MRSA *Have you ever received a pneumonia vaccine?: No *Have you received a flu vaccine this season?: Yes Anesthesia experience/problems:: nac Other Surgeries: Yes: Cardiac Catheterization, Amputation: No - *Social History Last grade of school completed: High school graduate Smoking Status: Former smoker Alcohol Intake: never Substance Use Type: denies use *Occupational Status:: employed Household Members: significant other *Travel in the last 8 weeks: None Family Hx:: Diabetes, Heart Attack, Hyperlipidemia, Hypertension, Kidney Disease, Stroke
[2020-08-27 13:00] VITALS: BP 103/78; PULSE 73; RESP 20; O2SAT 98
== END 2020-08-27 13:36 | disposition home or self-care (01) ==
LOC: CATHLAB 08:48
PROVIDERS: PCP Nurse Practitioner Family; Visit Provider Internal Medicine
PROC: 0JH608Z Insertion of Defibrillator Generator into Chest Subcutaneous Tissue and Fascia, Open Approach (ICD-10-PCS; CPT 33249; principal; 2020-08-27 10:00)
DX: I11.0 Hypertensive heart disease with heart failure (principal); I50.22 Chronic systolic (congestive) heart failure; I42.8 Other cardiomyopathies; I25.10 Atherosclerotic heart disease of native coronary artery without angina pectoris; E78.5 Hyperlipidemia, unspecified
CPT/HCPCS: 33249; 71045; C1721; C1895; C1898

== ENCOUNTER → 2020-10-08 11:49 | Outpatient (CLI) | payer OTHER, SELFPAY ==
[2020-10-08 12:19] LABS: Basophils # 0.1 K/mm3 (0-0.2); Basophils % 0.9 % (0.1-2.0); Eosinophils # 0.1 K/mm3 (0.0-0.4); Eosinophils % 1.8 % (0.1-12.0); Hematocrit 38.7 % (37.0-47.0); Hemoglobin 13.1 g/dL (12.2-16.2); Lymphocytes % 19.1 % (10-50); Mean Corpuscular HGB Conc 33.9 g/dL (31.8-35.4); Mean Corpuscular Hemoglobin 30.2 pg (27.0-31.2); Mean Corpuscular Volume 89.1 fl (81-99); Mean Platelet Volume 8.2 fl (7.4-10.4); Monocytes # 0.3 K/mm3 (0.1-1.0); Monocytes % 6.5 % (1.7-9.3); Neutrophils # 3.6 K/mm3 (1.8-7.8); Neutrophils % 71.5 % (37.0-80.0); Platelet Count 240 K/mm3 (142-424); Red Blood Count 4.34 M/mm3 (4.20-5.40); Red Cell Distribution Width 14.2 % (11.5-17.5); White Blood Count 5.1 K/mm3 (4.8-10.8)
[2020-10-08 13:26] LABS: Chloride 97 mmol/L (98-107); Potassium 4.8 mmoL/L (3.5-5.1); Sodium 137 mmol/L (136-145)
[2020-10-08 13:29] LABS: Anion Gap 17.8 mEq/L (5-15); Blood Urea Nitrogen 22 mg/dl (7-17); Carbon Dioxide 27 mmol/L (22.0-30.0); Estimated Glomerular Filt Rate 58 ml/min (>60); GFR (African American) 70 ML/MIN (>60)
[2020-10-08 13:30] LABS: Calcium 9.8 mg/dl (8.4-10.2); Glucose 189 mg/dl (74-100)
[2020-10-08 13:36] LABS: NT Pro Brain Natriuretic Pep. 295 pg/mL (0-125)
== END ==
PROVIDERS: Visit Provider Physician Assistant
DX: I50.9 Heart failure, unspecified (principal); R42 Dizziness and giddiness
CPT/HCPCS: 36415; 80048; 83880; 85025

== ENCOUNTER → 2020-10-24 11:25 | Outpatient (CLI) | payer OTHER, SELFPAY ==
[2020-10-24 11:56] LABS: Basophils # 0.1 K/mm3 (0-0.2); Basophils % 0.7 % (0.1-2.0); Eosinophils # 0.2 K/mm3 (0.0-0.4); Eosinophils % 1.9 % (0.1-12.0); Hematocrit 38.6 % (37.0-47.0); Hemoglobin 12.6 g/dL (12.2-16.2); Lymphocytes # 2.1 K/mm3 (0.7-4.5); Lymphocytes % 26.3 % (10-50); Mean Corpuscular HGB Conc 32.7 g/dL (31.8-35.4); Mean Corpuscular Hemoglobin 29.3 pg (27.0-31.2); Mean Corpuscular Volume 89.7 fl (81-99); Mean Platelet Volume 7.6 fl (7.4-10.4); Monocytes # 0.3 K/mm3 (0.1-1.0); Monocytes % 3.6 % (1.7-9.3); Neutrophils # 5.5 K/mm3 (1.8-7.8); Neutrophils % 67.5 % (37.0-80.0); Platelet Count 244 K/mm3 (142-424); Red Cell Distribution Width 13.1 % (11.5-17.5); White Blood Count 8.1 K/mm3 (4.8-10.8)
[2020-10-24 12:24] LABS: Anion Gap 14.6 mEq/L (5-15); Blood Urea Nitrogen 18 mg/dl (7-17); Carbon Dioxide 30 mmol/L (22.0-30.0); Chloride 99 mmol/L (98-107); Estimated Glomerular Filt Rate 66 ml/min (>60); GFR (African American) 80 ML/MIN (>60); Glucose 223 mg/dl (74-100); Magnesium 1.9 mg/dl (1.6-2.3); Potassium 4.6 mmoL/L (3.5-5.1); Sodium 139 mmol/L (136-145)
== END ==
PROVIDERS: Visit Provider Physician Assistant
DX: I25.10 Atherosclerotic heart disease of native coronary artery without angina pectoris (principal); R42 Dizziness and giddiness; I42.8 Other cardiomyopathies; I50.20 Unspecified systolic (congestive) heart failure; I50.22 Chronic systolic (congestive) heart failure; I47.2 Ventricular tachycardia; I10 Essential (primary) hypertension; E78.5 Hyperlipidemia, unspecified; Z95.810 Presence of automatic (implantable) cardiac defibrillator
CPT/HCPCS: 36415; 80048; 83735; 85025

== ENCOUNTER → 2020-10-31 11:54 | Outpatient (CLI) | payer OTHER, SELFPAY ==
[2020-11-04 01:23] LABS: QuantiFERON-TB Gold Plus Negative (Negative)
== END ==
PROVIDERS: Visit Provider Dermatology
DX: L40.0 Psoriasis vulgaris (principal); L57.0 Actinic keratosis; D22.5 Melanocytic nevi of trunk; Z79.899 Other long term (current) drug therapy
CPT/HCPCS: 36415; 86480

== ENCOUNTER → 2021-03-05 13:45 | Outpatient (CLI) | payer BC, SELFPAY ==
--- NOTE | 2021-03-05 13:48 | CA_ITS ---
APPROVED REPORT EXAM: Comprehensive 2D, Doppler, and color-flow Echocardiogram Dewatering Filtering Supervisor: Mica Kendall CRT Ht: 5 ft 6 in Wt: 209lbs BSA: 2.04 BP: 118/63 mmHg Indications: Hypertension I10, CHF, CAD, PACER, CM M-Mode Dimensions RVDd 1.40 cm (0.9-2.6) LVDd 6.05 cm (3.5-5.7) LVDs 4.88 cm (3.5-5.7) IVSd 0.74 cm (0.6-1.1) PWd 1.10 cm (0.6-1.1) EF (Teich) 39.10% FS 19.30% EDV (Teich) 183.40 mL ESV (Teich) 111.70 mL Conclusion 1. Limited transthoracic echocardiograms performed. 2. Left ventricular size, mild concentric left ventricular hypertrophy, visually estimated ejection fraction approximately 45%, there is abnormal septal motion. 3. No significant pericardial effusion noted. Electronically signed by : Vivek Matt, 03/06/2021 13:28:39
== END ==
PROVIDERS: PCP Internal Medicine Adolescent Medicine; Visit Provider Physician Assistant
DX: R42 Dizziness and giddiness (principal); R00.2 Palpitations; I42.8 Other cardiomyopathies; I47.2 Ventricular tachycardia; I50.20 Unspecified systolic (congestive) heart failure; R94.31 Abnormal electrocardiogram [ECG] [EKG]; E78.5 Hyperlipidemia, unspecified; Z95.810 Presence of automatic (implantable) cardiac defibrillator
CPT/HCPCS: 93308

== ENCOUNTER 2021-07-17 16:53 | Emergency (ER) | payer BC, SELFPAY ==
[2021-07-17 16:59] VITALS: BMI 28.3
[2021-07-17 17:22] VITALS: BP 152/89; PULSE 71; RESP 18; TEMP 36.9; O2SAT 97; BMI 32.3
--- NOTE | 2021-07-17 17:52 | HMH.EDUTC ---
[facility] [place] Disposition Clinical Impression: Cellulitis and abscess of lower extremity Disposition: Home, Self-Care Condition on Discharge: Good Instructions: Cellulitis, Clindamycin, Mupirocin Additional Instructions: *Start antibiotic(s) immediately and be sure to take as ordered for the FULL length of time although you may be feeling better or start to see improvement in the next 24-48 hours *Monitor closely. Outlined redness so that you can monitor easier. Follow up immediately for new or worsening symptoms including but not limited to redness, swelling, streaking from site fever or chills. *Warm compress 15 minutes 3-4 times day *Never squeeze or pop these on your own. Seek immediate medical attention next time this occurs *Monitor Temp. Tylenol every 4 hours as needed and ibuprofen every 6 hours as needed (as long as your primary care doctor has told you that it is ok to take both. For fever, aches, pain. ER if no less that 101 despite Tylenol and ibuprofen Follow up with your family doctor/primary care physician in the next 48-72 hours if no improvement Apply topical medication directly to area and cover with loose dressing Follow up with your Family Doctor if no improvement or any worsening of symptoms Straight to ER if any life threatening symptoms Prescriptions: clindamycin HCL [Clindamycin HCl] 300 mg PO TID 10 Days #30 cap Transmission Status: Pending to [id number] Mupirocin Calcium [Mupirocin 2% Cream 15gm] 1 applicatio TP TID 10 Days #15 gm Transmission Status: Pending to [id number] Referrals: Kalyani Doyle APRN [Primary Care Provider] - As needed Time of Disposition: 18:03 Medical Decision Making - Jeffy Inquiry Pt receiving controlled substance: No Jeffy was queried for this patient: No Vital Signs: 07/17/21 17:22 Temperature 98.5 F Temperature Source Oral Pulse Rate [Left] 71 Respiratory Rate 18 Blood Pressure [Right Arm] 152/89 H Blood Pressure Mean [Right Arm] 110 02 Sat by Pulse Oximetry 97 Orders (Tests/Meds): ORDERS Category Date Time Status Wound Culture and Gram Stain Stat Micro 07/17/21 17:54 Ordered [facility] [place] HPI - General Stated complaint: possible spider bite Time Seen by Provider: 07/17/21 17:52 Mode of Arrival: Ambulatory Source of Information: Patient Limitations: No Limitations Description of Symptoms (Recalled from Triage Doc. by RN): pt states she had a blister come up on her leg yesterday. blister is about nickel size on the side of her R calf. HEENT Symptoms (Recalled from RN notes): No Resp Symptoms (Recalled from RN notes): No Skin Symptoms (Recalled from RN notes): Yes (blister on R calf) MS Symptoms (Recalled from RN notes): No Functional Status (Recalled from RN notes): na - History of Present Illness Provider Complaint: Patient states that she thinks she may have been bitten by spider or something States that she noticed small blister like area on her right lower leg States that as the day went on it continued to get larger States that now it is about the size of a ricky and noticed it was red and hard around it so she came in thinking she may need antibioitic - Related Data Home Medications Medication Instructions Recorded Confirmed aspirin 81 mg tablet,delayed 81 mg PO DAILY 07/10/18 06/04/21 release cetirizine 10 mg capsule 10 mg PO DAILY 07/10/18 06/04/21 Ixekizumab [Taltz Syringe] 80 mg SQ MONTHLY 07/06/20 06/04/21 Previous Rx's Medication Instructions Recorded furosemide 40 mg tablet 40 mg PO DAILY PRN #90 tab 12/29/20 atorvastatin 80 mg tablet 80 mg PO HS #90 tab 04/06/21 spironolactone 25 mg tablet 25 mg PO DAILY #90 tab 04/06/21 bisoprolol fumarate 5 mg tablet See Rx Instructions .ROUTE 04/22/21 .COMPLEX #180 tab sacubitril 24 mg-valsartan 26 mg 1 tab PO BID #60 tab 04/30/21 tablet Mupirocin Calcium [Mupirocin 2% 1 applicatio TP TID 10 Days #15 gm 07/17/21 Cream 15gm] clindamycin HCL [Clindamycin HCl] 300 mg P
[2021-07-17 18:13] VITALS: BP 152/89; PULSE 71; RESP 18; TEMP 36.9
== END 2021-07-17 18:30 | disposition home or self-care (01) ==
LOC: ER 16:58 → UTC 17:03
PROVIDERS: Emergency Provider Nurse Practitioner; PCP Nurse Practitioner Family
DX: L03.115 Cellulitis of right lower limb (principal); I25.10 Atherosclerotic heart disease of native coronary artery without angina pectoris; I10 Essential (primary) hypertension; I50.9 Heart failure, unspecified; E78.5 Hyperlipidemia, unspecified; Z87.891 Personal history of nicotine dependence
CPT/HCPCS: 87070; 87077; 87186; 87205; 99202; G0463

== ENCOUNTER 2021-07-20 13:09 | Emergency (ER) | payer BC, SELFPAY ==
[2021-07-20 13:10] VITALS: BP 162/97; PULSE 77; RESP 18; TEMP 36.8; O2SAT 98; BMI 32.3
[2021-07-20 13:31] VITALS: BP 166/82; PULSE 80; RESP 16; TEMP 36.7; O2SAT 98; BMI 32.3
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
[2021-07-20 16:26] VITALS: BP 132/74; PULSE 78; RESP 16; TEMP 36.6; O2SAT 98
== END 2021-07-20 16:27 | disposition home or self-care (01) ==
PROVIDERS: Emergency Provider Family Medicine; PCP Nurse Practitioner Family
DX: L03.115 Cellulitis of right lower limb (principal); I50.9 Heart failure, unspecified; I25.10 Atherosclerotic heart disease of native coronary artery without angina pectoris; E78.5 Hyperlipidemia, unspecified; I10 Essential (primary) hypertension; Z87.891 Personal history of nicotine dependence
CPT/HCPCS: 99281

== ENCOUNTER → 2021-10-12 11:53 | Outpatient (CLI) | payer BC, SELFPAY | PROVIDERS: PCP Nurse Practitioner Family; Visit Provider Internal Medicine Cardiovascular Disease | DX: G47.30 Sleep apnea, unspecified (principal); R06.83 Snoring ==

== ENCOUNTER → 2021-11-10 07:44 | Outpatient (CLI) | payer BC, SELFPAY ==
[2021-11-10 08:32] LABS: Basophils # 0.1 K/mm3 (0-0.2); Basophils % 0.7 % (0.1-2.0); Eosinophils # 0.2 K/mm3 (0.0-0.4); Eosinophils % 3.1 % (0.1-12.0); Hemoglobin 13.6 g/dL (12.2-16.2); Lymphocytes # 2.4 K/mm3 (0.7-4.5); Lymphocytes % 31.6 % (10-50); Mean Corpuscular HGB Conc 33.2 g/dL (31.8-35.4); Mean Corpuscular Hemoglobin 29.3 pg (27.0-31.2); Mean Corpuscular Volume 88.5 fl (81-99); Mean Platelet Volume 8.8 fl (7.4-10.4); Monocytes # 0.3 K/mm3 (0.1-1.0); Neutrophils # 4.7 K/mm3 (1.8-7.8); Neutrophils % 60.6 % (37.0-80.0); Platelet Count 239 K/mm3 (142-424); Red Blood Count 4.63 M/mm3 (4.20-5.40); Red Cell Distribution Width 13.6 % (11.5-17.5); White Blood Count 7.7 K/mm3 (4.8-10.8)
[2021-11-10 08:47] LABS: Chloride 98 mmol/L (98-107); Potassium 3.9 mmoL/L (3.5-5.1); Sodium 134 mmol/L (136-145)
[2021-11-10 08:50] LABS: Alanine Aminotransferase 22 U/L (12-78); Albumin Level 4.1 g/dl (3.5-5.0); Albumin/Globulin Ratio 1.4 (1.1-1.8); Alkaline Phosphatase 109 U/L (38-126); Anion Gap 9.9 mEq/L (5-15); Aspartate Amino Transferase 31 U/L (14-36); Bilirubin,Total 0.6 mg/dl (0.2-1.3); Blood Urea Nitrogen 9 mg/dl (7-17); Calcium 8.3 mg/dl (8.4-10.2); Carbon Dioxide 30 mmol/L (22.0-30.0); Estimated Glomerular Filt Rate 88 ml/min (>60); GFR (African American) 106 ML/MIN (>60); Glucose 206 mg/dl (74-100); Total Protein,Serum 7.1 g/dl (6.3-8.2)
[2021-11-12 22:07] LABS: QuantiFERON-TB Gold Plus Negative (Negative)
== END ==
PROVIDERS: Visit Provider Dermatology
DX: L40.0 Psoriasis vulgaris (principal)
CPT/HCPCS: 36415; 80053; 85025; 86480

== ENCOUNTER → 2021-11-30 20:59 | Outpatient (CLI) | payer BC, SELFPAY | PROVIDERS: PCP Nurse Practitioner Family; Visit Provider Physician Assistant | DX: G47.30 Sleep apnea, unspecified (principal); R06.83 Snoring; I10 Essential (primary) hypertension; R40.0 Somnolence | CPT/HCPCS: 95810 ==

== ENCOUNTER → 2022-03-03 11:36 | Outpatient (CLI) | payer BC, SELFPAY ==
[2022-03-03 12:42] LABS: Basophils # 0.1 K/mm3 (0-0.2); Basophils % 1.4 % (0.1-2.0); Eosinophils # 0.1 K/mm3 (0.0-0.4); Eosinophils % 1.5 % (0.1-12.0); Hematocrit 42.5 % (37.0-47.0); Hemoglobin 14.6 g/dL (12.2-16.2); Lymphocytes # 2.1 K/mm3 (0.7-4.5); Lymphocytes % 25.6 % (10-50); Mean Corpuscular HGB Conc 34.2 g/dL (31.8-35.4); Mean Corpuscular Hemoglobin 30.6 pg (27.0-31.2); Mean Corpuscular Volume 89.3 fl (81-99); Mean Platelet Volume 7.8 fl (7.4-10.4); Monocytes # 0.2 K/mm3 (0.1-1.0); Monocytes % 2.8 % (1.7-9.3); Neutrophils # 5.7 K/mm3 (1.8-7.8); Neutrophils % 68.7 % (37.0-80.0); Platelet Count 280 K/mm3 (142-424); Red Blood Count 4.76 M/mm3 (4.20-5.40); Red Cell Distribution Width 13.7 % (11.5-17.5); White Blood Count 8.4 K/mm3 (4.8-10.8)
[2022-03-03 13:04] LABS: Alanine Aminotransferase 22 U/L (12-78); Albumin Level 4.5 g/dl (3.5-5.0); Alkaline Phosphatase 107 U/L (38-126); Anion Gap 14.6 mEq/L (5-15); Aspartate Amino Transferase 30 U/L (14-36); Bilirubin,Indirect 0.5 mg/dL (0.0-0.9); Bilirubin,Total 0.5 mg/dl (0.2-1.3); Bilirubin,Unconjugated 0.8 mg/dL (0.0-1.1); Blood Urea Nitrogen 10 mg/dl (7-17); Calcium 9.3 mg/dl (8.4-10.2); Carbon Dioxide 29 mmol/L (22.0-30.0); Chloride 100 mmol/L (98-107); Chol/HDL Ratio 3.9 (1-3.5); Cholesterol 139 mg/dl (140-200); Estimated Glomerular Filt Rate 75 ml/min (>60); GFR (African American) 91 ML/MIN (>60); Glucose 143 mg/dl (74-100); HDL Cholesterol 36 mg/dl (40-60); Magnesium 1.6 mg/dl (1.6-2.3); Potassium 4.6 mmoL/L (3.5-5.1); Sodium 139 mmol/L (136-145); Total Protein,Serum 7.8 g/dl (6.3-8.2); Triglycerides 125 mg/dl (30-150); VLDL Cholesterol 25 mg/dL (0-40)
[2022-03-03 13:13] LABS: NT Pro Brain Natriuretic Pep. 63.9 pg/mL (0-125)
[2022-03-03 13:14] LABS: Direct LDL Cholesterol 68.82 mg/dL (100-129)
[2022-03-03 13:21] LABS: Free T4 (Free Thyroxine) 1.11 ng/dl (0.78-2.19)
[2022-03-03 13:34] LABS: Thyroid Stimulating Hormone 1.74 uIU/mL (0.465-4.68)
== END ==
PROVIDERS: PCP Nurse Practitioner Family; Visit Provider Physician Assistant
DX: R06.00 Dyspnea, unspecified (principal); I11.0 Hypertensive heart disease with heart failure; I50.20 Unspecified systolic (congestive) heart failure; I50.22 Chronic systolic (congestive) heart failure; I25.10 Atherosclerotic heart disease of native coronary artery without angina pectoris; I42.8 Other cardiomyopathies; I49.1 Atrial premature depolarization; I49.3 Ventricular premature depolarization; I63.9 Cerebral infarction, unspecified; E78.5 Hyperlipidemia, unspecified; E11.9 Type 2 diabetes mellitus without complications; Z95.810 Presence of automatic (implantable) cardiac defibrillator
CPT/HCPCS: 36415; 80048; 80061; 80076; 83735; 83880; 84439; 84443; 85025

== ENCOUNTER 2022-07-07 08:33 | Emergency (ER) | payer BC, SELFPAY ==
[2022-07-07 08:53] VITALS: BP 122/78; PULSE 76; RESP 18; TEMP 36.8; O2SAT 98; BMI 31.3
--- NOTE | 2022-07-07 09:00 | EXP.UTC ---
Discharge Plan Disposition Patient Disposition: Home, Self-Care Condition: Good Prescriptions Prescriptions: New benzonatate 100 mg capsule 100 mg PO TID PRN (Reason: cough) Qty: 15 0RF methylprednisolone [Medrol (Etienne)] 4 mg tablets,dose pack See Rx Instructions .Route .COMPLEX 6 Days Qty: 21 0RF Rx Instructions: taper pack; amoxicillin-pot clavulanate 875-125 mg Tablet 1 tab PO Q12H Qty: 20 0RF No Action aspirin [Adult Low Dose Aspirin] 81 mg tablet,delayed release (DR/EC) 81 mg PO DAILY Zyrtec 10 mg capsule 10 mg PO DAILY atorvastatin 80 mg tablet 80 mg PO HS Qty: 90 3RF furosemide 40 mg tablet 40 mg PO DAILY PRN (Reason: edema) Qty: 90 3RF spironolactone 25 mg tablet 25 mg PO DAILY Qty: 90 3RF sacubitril-valsartan 24-26 mg tablet 1 tab PO BID Qty: 60 5RF bisoprolol fumarate 5 mg tablet 5 mg PO DIRECTED Qty: 270 1RF Rx Instructions: Take Bisoprolol 5 mg in the morning Take Bisoprolol 7.5 mg (1.5 tablets) in the evening ixekizumab 80 MG/ML syringe 80 mg SQ MONTHLY Referrals Follow up/Referrals: Kalyani Doyle APRN [Primary Care Provider] - See instructions Activity Restrictions/Add. Instructions Additional Instructions/Restrictions: Start antibiotic today. Be sure to complete entire prescription even if feeling better Monitor temp. Tylenol every 4 hours as needed and / or ibuprofen every 6 hours as needed ( As long as your primary care physician has told you that it ok to take both. For fever/aches/pains ER if no less than 101 despite Tylenol or Motrin Humidifier/vaporizer or hot steamy shower Inhaler every 4-6 hours as needed like we discussed. If unsure how to use it, ask pharmacist to demonstrate how. Should help open airways and improve cough, wheezing, and shortness of breath *Tessalon Perles will not cause drowsiness but use at bedtime to help stop cough so that you may get some rest. *Start steroid today. Helps with inflammation therefore, cough and wheezing. Follow directions on the package. Reviewed side effects. Patient reports taking them before. Follow up IMMEDIATELY for new or worsening of symptoms OR no noticeable improvement over the next 48-72 hours. 911 immediately for any life threatening symptoms such as chest pain or difficulty breathing Clinical Impressions Clinical Impression: Bronchitis Sinusitis Qualifiers: Sinusitis location: unspecified location Chronicity: unspecified Qualified Code(s): J32.9 - Chronic sinusitis, unspecified Stand Alone Forms Stand Alone Forms: Work/School Release Instructions Patient Instructions: Sinusitis, Acute Bronchitis, DI for Sinusitis Discharge ED Provider: Suzanne Vargas [facility] HPI General Stated complaint: cough, runny nose, congestion Mode of Arrival: Ambulatory Source of Information: Patient Limitations: No Limitations Time Seen by Provider: 07/07/22 09:00 Description of Symptoms (Recalled from Triage Doc. by RN): CHEST CONGESTION, PRODUCTIVE COUGH AND FEVER X 1 WEEK HEENT Symptoms (Recalled from RN notes): Yes Resp Symptoms (Recalled from RN notes): Yes Skin Symptoms (Recalled from RN notes): No MS Symptoms (Recalled from RN notes): No Functional Status (Recalled from RN notes): NA History of Present Illness Provider Complaint: Patient states that for the last week she has been having sinus pain and pressure pressure behind her eyes and feels like it is trying to move into her chest States that at times she is able to cough up some thick yellow mucous like she is getting out of her nose, felt like she may have had a fever yesterday States that she get this about this time every year and has to come in and get something for it Related Data Home Medications Medication Instructions Recorded Confirmed aspirin 81 mg tablet,delayed 81 mg PO DAILY Heart disease 07/10/18 03/03/22 release (Adult Low
[2022-07-07 09:15] VITALS: BP 122/78; PULSE 76; RESP 18; TEMP 36.8; O2SAT 98
== END 2022-07-07 09:15 | disposition home or self-care (01) ==
PROVIDERS: Emergency Provider Nurse Practitioner; PCP Nurse Practitioner Family
DX: J40 Bronchitis, not specified as acute or chronic (principal); J32.9 Chronic sinusitis, unspecified
CPT/HCPCS: 99212; G0463

== ENCOUNTER → 2022-10-19 14:12 | Outpatient (CLI) | payer BC, SELFPAY ==
--- NOTE | 2022-10-19 14:13 | CA_ITS ---
APPROVED REPORT EXAM: Comprehensive 2D, Doppler, and color-flow Echocardiogram System Configuration Specialist: Mica Kendall CRT Ht: 5 ft 6 in Wt: 194lbs BSA: 1.97 BP: 126/69 mmHg Indications: Abnormal ECG, Palpitations, Fatigue, CAD, Hyperlipidemia, Cardiomyopathy, AICD, V TACHY 2D Dimensions LVOT 2.02 cm (M/F) 1.5-2.5 LA Volume 29.50 mL LA Volume Index 14.417339 mL/m2 (M/F) 16-34 M-Mode Dimensions RVDd 1.64 cm (0.9-2.6) LA Diam 2.73 cm (1.9-4.0) LVDd 5.74 cm (3.5-5.7) Ao Diam 3.64 cm (2.0-3.7) LVDs 4.58 cm (3.5-5.7) IVSd 0.82 cm (0.6-1.1) PWd 0.75 cm (0.6-1.1) EF (Teich) 40.80% FS 20.20% EDV (Teich) 162.60 mL TAPSE 1.24 (<1.7) ESV (Teich) 96.30 mL LV Diastology E Decel Time 227.00 (160-240 msec) E/A Ratio 0.76 MED E' 6.00 (< 7 cm/sec) MED A' 8.20 cm/s E'/MED E' Ratio 10.87 (>14) LAT E' 10.20 (<10 cm/sec) LAT A' 8.60 cm/s E/LAT E' Ratio 6.39 (>14) Aortic Valve AI PHT 581.00 ms AO Peak GR. 7.70 mmHg Mitral Valve MV E Max Riley. 65.00 (40-130 cm/s) MV A Velocity 85.00 (40-130 cm/s) E/A Ratio 0.76 MV Decel. Time 227.00 (160-240 ms) MV PHT 66.00 ms Pulmonary Valve PV Peak Velocity 108.00 (50-150 cm/s) Tricuspid Valve TR P. Velocity 293.00 cm/s RAP Estimate 10.00 mmHg RVSP 44.30 mmHg Left Ventricle Left atrium is mildly enlarged, left ventricle is normal size mild concentric left ventricular hypertrophy, estimated ejection fraction 40%, with no regional wall motion abnormality, grade 1 diastolic dysfunction seen without tissue Doppler evidence of raise left atrial pressure. Right Ventricle Right atrium and right ventricle are normal size and contractility, and AICD leads in the right ventricle. Aortic Valve Aortic valve is minimally thickened and fibrosed there is no aortic stenosis, there is trace aortic insufficiency. Mitral Valve Mitral valve is grossly normal, there is trace mitral regurgitation. Tricuspid Valve Tricuspid valve is grossly normal, there is trace tricuspid regurgitation, tricuspid regurgitation jet velocity is inadequate for calculation of the right ventricular systolic pressure. Pulmonic Valve Pulmonic valve is poorly visualized. Great Vessels Aortic root is normal size. Inferior vena cava is normal size with normal inspiratory collapse. Pericardium No significant pericardial effusion noted. Conclusion 1. Normal left ventricular size mild concentric left ventricular hypertrophy, estimated ejection fraction 40% with no regional wall motion abnormality, grade 1 diastolic dysfunction seen without tissue Doppler evidence of raise left atrial pressure. 2. Trace aortic, mitral and tricuspid regurgitation. 3. No significant pericardial effusion noted. 4. Inferior vena cava is normal size with normal inspiratory collapse. Electronically signed by : Vivek Matt MD 10/20/2022 05:52:45
== END ==
PROVIDERS: PCP Nurse Practitioner Family; Visit Provider Physician Assistant
DX: I42.8 Other cardiomyopathies (principal); I25.10 Atherosclerotic heart disease of native coronary artery without angina pectoris; I47.2 Ventricular tachycardia; E78.5 Hyperlipidemia, unspecified; Z95.810 Presence of automatic (implantable) cardiac defibrillator
CPT/HCPCS: 93306

== ENCOUNTER → 2022-11-09 07:42 | Outpatient (CLI) | payer BC, SELFPAY ==
[2022-11-09 08:40] LABS: Basophils # 0.1 K/mm3 (0-0.2); Basophils % 1.1 % (0.1-2.0); Eosinophils # 0.2 K/mm3 (0.0-0.4); Eosinophils % 2.2 % (0.1-12.0); Hematocrit 43.7 % (37.0-47.0); Lymphocytes # 2.4 K/mm3 (0.7-4.5); Lymphocytes % 26.7 % (10-50); Mean Corpuscular HGB Conc 31.9 g/dL (31.8-35.4); Mean Corpuscular Hemoglobin 28.8 pg (27.0-31.2); Mean Corpuscular Volume 90.3 fl (81-99); Mean Platelet Volume 8.2 fl (7.4-10.4); Monocytes # 0.3 K/mm3 (0.1-1.0); Monocytes % 3.6 % (1.7-9.3); Neutrophils # 5.8 K/mm3 (1.8-7.8); Neutrophils % 66.4 % (37.0-80.0); Platelet Count 270 K/mm3 (142-424); Red Blood Count 4.84 M/mm3 (4.20-5.40); Red Cell Distribution Width 13.6 % (11.5-17.5); White Blood Count 8.8 K/mm3 (4.8-10.8)
[2022-11-09 08:59] LABS: Alanine Aminotransferase 23 U/L (12-78); Albumin Level 4.4 g/dl (3.5-5.0); Alkaline Phosphatase 134 U/L (38-126); Anion Gap 8.7 mEq/L (5-15); Aspartate Amino Transferase 27 U/L (14-36); Bilirubin,Direct 0.3 mg/dl (0.0-0.4); Bilirubin,Indirect 0.3 mg/dL (0.0-0.9); Bilirubin,Total 0.6 mg/dl (0.2-1.3); Bilirubin,Unconjugated 0.3 mg/dL (0.0-1.1); Blood Urea Nitrogen 19 mg/dl (7-17); Calcium 8.9 mg/dl (8.4-10.2); Carbon Dioxide 28 mmol/L (22.0-30.0); Chloride 104 mmol/L (98-107); Chol/HDL Ratio 5.5 (1-3.5); Cholesterol 148 mg/dl (140-200); Estimated Glomerular Filt Rate 75 ml/min (>60); GFR (African American) 90 ML/MIN (>60); Glucose 184 mg/dl (74-100); HDL Cholesterol 27 mg/dl (40-60); Magnesium 1.9 mg/dl (1.6-2.3); Potassium 4.7 mmoL/L (3.5-5.1); Sodium 136 mmol/L (136-145); Total Protein,Serum 7.5 g/dl (6.3-8.2); Triglycerides 313 mg/dl (30-150); VLDL Cholesterol 63 mg/dL (0-40)
[2022-11-09 09:10] LABS: Direct LDL Cholesterol 80.05 mg/dL (100-129)
[2022-11-09 09:16] LABS: Free T4 (Free Thyroxine) 0.91 ng/dl (0.78-2.19)
[2022-11-09 09:29] LABS: Thyroid Stimulating Hormone 1.74 uIU/mL (0.465-4.68)
[2022-11-11 19:35] LABS: QuantiFERON-TB Gold Plus Negative (Negative)
== END ==
PROVIDERS: PCP Dermatology; Visit Provider Physician Assistant
DX: R42 Dizziness and giddiness (principal); I42.9 Cardiomyopathy, unspecified; I47.2 Ventricular tachycardia; I25.10 Atherosclerotic heart disease of native coronary artery without angina pectoris; R53.83 Other fatigue; I10 Essential (primary) hypertension; E78.5 Hyperlipidemia, unspecified; Z79.899 Other long term (current) drug therapy
CPT/HCPCS: 36415; 80048; 80053; 80061; 80076; 83735; 84439; 84443; 85025; 86480

== ENCOUNTER 2023-01-12 18:14 | Emergency (ER) | payer OTHER, BC, SELFPAY ==
--- NOTE | 2023-01-12 18:14 | ECG_ITS ---
APPROVED REPORT Exam: Resting ECG HR:81 bpm ECG Measurements Heart Rate 81 AXES ME 184 P 44 QRSd 89 QRS 5 QT 356 T -1 QTc 394 Conclusion SINUS RHYTHM Late R wave progression ABNORMAL ECG UNCONFIRMED REPORT Electronically signed by : Maxim Blanco MD 01/13/2023 21:15:29
[2023-01-12 18:15] VITALS: BP 133/71; PULSE 79; RESP 20; TEMP 36.8; O2SAT 99; BMI 30.7
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
[2023-01-12 19:04] LABS: MANUAL DIFFERENTIAL MANUAL DIFFERENTIAL (MANUAL DIFF)
[2023-01-12 19:12] LABS: Basophils % 0.4 % (0.1-2.0); Chloride 100 mmol/L (98-107); Eosinophils # 0.2 K/mm3 (0.0-0.4); Eosinophils % 1.9 % (0.1-12.0); Hematocrit 39.6 % (37.0-47.0); Lymphocytes # 2.8 K/mm3 (0.7-4.5); Lymphocytes % 31.1 % (10-50); Mean Corpuscular HGB Conc 32.9 g/dL (31.8-35.4); Mean Corpuscular Hemoglobin 29.1 pg (27.0-31.2); Mean Corpuscular Volume 88.4 fl (81-99); Mean Platelet Volume 8.2 fl (7.4-10.4); Monocytes # 0.3 K/mm3 (0.1-1.0); Monocytes % 3.6 % (1.7-9.3); Neutrophils # 5.7 K/mm3 (1.8-7.8); Platelet Count 235 K/mm3 (142-424); Potassium 3.9 mmoL/L (3.5-5.1); Red Blood Count 4.48 M/mm3 (4.20-5.40); Red Cell Distribution Width 13.6 % (11.5-17.5); Sodium 137 mmol/L (136-145)
[2023-01-12 19:15] LABS: Alanine Aminotransferase 23 U/L (12-78); Albumin Level 4.1 g/dl (3.5-5.0); Albumin/Globulin Ratio 1.3 (1.1-1.8); Alkaline Phosphatase 100 U/L (38-126); Anion Gap 11.9 mEq/L (5-15); Aspartate Amino Transferase 28 U/L (14-36); Bilirubin,Total 0.5 mg/dl (0.2-1.3); Blood Urea Nitrogen 14 mg/dl (7-17); Carbon Dioxide 29 mmol/L (22.0-30.0); Creatinine Clearance Estimated 109 mL/min (50-200); Estimated Glomerular Filt Rate 75 ml/min (>60); GFR (African American) 90 ML/MIN (>60); Globulin 3.2 g/dL (1.3-3.2); Total Protein,Serum 7.3 g/dl (6.3-8.2)
[2023-01-12 19:16] LABS: Calcium 9.1 mg/dl (8.4-10.2); Glucose 171 mg/dl (74-100)
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
[2023-01-12 19:50] LABS: Microscopic, Urine URINE MICROSCOPIC (MICROSCOPIC)
[2023-01-12 19:51] LABS: Lymphocytes % 31 % (10-50); Microcytosis 2+; Monocytes % 5 % (2-9); Neutrophils % 64 % (42-76); Platelet Estimate Normal; Total Cells Counted 100
[2023-01-12 19:53] LABS: Appearance,Urine CLEAR (Clear); Bilirubin,Urine Negative (Negative); Blood, Urine 1+ (Negative); Color,Urine YELLOW (Yellow); Glucose,Urine (UA) Negative (Negative); Ketones,Urine Negative (Negative); Leukocyte Esterase,Urine Negative (Negative); Nitrate,Urine Negative (Negative); Protein,Urine Negative (Negative); Specific Gravity, Urine <= 1.005 (1.005-1.030); Urobilinogen,Urine 0.2 EU/dl (0.2)
[2023-01-12 20:20] LABS: Bacteria,Urine Trace /lpf; Yeast,Urine Occasional /lpf
[2023-01-12 20:27] LABS: Amphetamine/Metha Screen,Urine Negative ng/ml (<1000)
[2023-01-12 20:28] LABS: Barbiturates Screen,Urine Negative ng/ml (<200); Benzodiazepines Screen,Urine Negative ng/ml (<200)
[2023-01-12 20:29] LABS: Cannabinoid Screen,Urine Positive ng/ml (<50)
[2023-01-12 20:30] LABS: Cocaine Screen,Urine Negative ng/ml (<300); Methadone Screen,Urine Negative ng/ml (<300)
[2023-01-12 20:31] LABS: Opiate Screen,Urine Negative ng/ml (<300)
[2023-01-12 20:32] LABS: Phencyclidine Screen,Urine Negative ng/ml (<25)
[2023-01-12 20:54] VITALS: BP 127/69; PULSE 77; RESP 17; TEMP 36.6; O2SAT 98
== END 2023-01-12 21:02 | disposition home or self-care (01) ==
PROVIDERS: Emergency Provider Emergency Medicine; PCP Nurse Practitioner Family
DX: M54.2 Cervicalgia (principal); M54.50 Low back pain, unspecified; Z87.891 Personal history of nicotine dependence; Z95.810 Presence of automatic (implantable) cardiac defibrillator; V43.52XA Car driver injured in collision with other type car in traffic accident, initial encounter
CPT/HCPCS: 72125; 72131; 80053; 80305; 81001; 85007; 85014; 85018; 85048; 85049; 93005; 96372; 96374; 96376; 99285

== ENCOUNTER → 2023-01-24 10:21 | Outpatient (CLI) | payer MEDICARE, BC, SELFPAY ==
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
== END ==
PROVIDERS: PCP Nurse Practitioner Family; Visit Provider Nurse Practitioner Family
DX: R22.1 Localized swelling, mass and lump, neck (principal); R22.0 Localized swelling, mass and lump, head
CPT/HCPCS: 76536

== ENCOUNTER 2023-11-08 07:39 | Outpatient (CLI) | payer MEDICARE, BC, SELFPAY ==
[2023-11-08 08:24] LABS: Basophils % 0.3 % (0.1-2.0); Eosinophils # 0.1 K/mm3 (0.0-0.4); Eosinophils % 1.3 % (0.1-12.0); Hematocrit 40.3 % (37.0-47.0); Hemoglobin 13.4 g/dL (12.2-16.2); Lymphocytes # 2.3 K/mm3 (0.7-4.5); Lymphocytes % 27.3 % (10-50); Mean Corpuscular HGB Conc 33.3 g/dL (31.8-35.4); Mean Corpuscular Hemoglobin 29.7 pg (27.0-31.2); Mean Corpuscular Volume 89.3 fl (81-99); Monocytes # 0.3 K/mm3 (0.1-1.0); Monocytes % 3.8 % (1.7-9.3); Neutrophils # 5.6 K/mm3 (1.8-7.8); Neutrophils % 67.2 % (37.0-80.0); Platelet Count 222 K/mm3 (142-424); Red Blood Count 4.52 M/mm3 (4.20-5.40); Red Cell Distribution Width 14.1 % (11.5-17.5); White Blood Count 8.4 K/mm3 (4.8-10.8)
[2023-11-08 09:09] LABS: Alanine Aminotransferase 22 U/L (12-78); Albumin Level 4.2 g/dl (3.5-5.0); Albumin/Globulin Ratio 1.5 (1.1-1.8); Alkaline Phosphatase 90 U/L (38-126); Anion Gap 9.6 mEq/L (5-15); Aspartate Amino Transferase 25 U/L (14-36); Bilirubin,Total 0.6 mg/dl (0.2-1.3); Blood Urea Nitrogen 8 mg/dl (7-17); Calcium 9.2 mg/dl (8.4-10.2); Carbon Dioxide 29 mmol/L (22.0-30.0); Chloride 106 mmol/L (98-107); Estimated Glomerular Filt Rate 87 ml/min (>60); GFR (African American) 105 ML/MIN (>60); Globulin 2.8 g/dL (1.3-3.2); Glucose 179 mg/dl (74-100); Potassium 4.6 mmoL/L (3.5-5.1); Sodium 140 mmol/L (136-145)
[2023-11-10 23:11] LABS: QuantiFERON-TB Gold Plus Negative (Negative)
== END 2023-11-08 23:59 ==
LOC: LAB 07:42
PROVIDERS: Dermatology; PCP Nurse Practitioner Family; Visit Provider Nurse Practitioner Family
DX: L30.8 Other specified dermatitis (principal); M25.521 Pain in right elbow; M25.522 Pain in left elbow; M25.561 Pain in right knee; M25.562 Pain in left knee
CPT/HCPCS: 36415; 80053; 85025; 86480

== ENCOUNTER 2024-02-25 09:06 | Emergency (ER) | payer MEDICARE, MEDICAID, SELFPAY ==
[2024-02-25 09:25] VITALS: BP 132/72; PULSE 74; RESP 19; TEMP 36.7; O2SAT 98; BMI 31.3
--- NOTE | 2024-02-25 09:52 | ED_ITS ---
Discharge Plan Disposition Patient Disposition: Home, Self-Care Condition: Good Prescriptions Prescriptions: New azithromycin 250 mg tablet 250 mg PO DIRECTED Qty: 6 0RF Rx Instructions: Take two (2) tablets on day #1, then one (1) tablet day #2 thru #5 fluticasone propionate 50 mcg/actuation spray,suspension 1 spray intranasal DAILY Qty: 9.9 0RF No Action aspirin [Adult Low Dose Aspirin] 81 mg tablet,delayed release (DR/EC) 81 mg PO DAILY furosemide 40 mg tablet 40 mg PO DAILYP PRN (Reason: Edema) Patient Comments: TAKE 1 TABLET BY MOUTH ONCE DAILY NEEDED FOR EDEMA bisoprolol fumarate 5 mg tablet 5 mg PO BID Patient Comments: TAKE 1 TABLET BY MOUTH EVERY MORNING AND 1 AND 1/2 TABLETS IN THE EVENING DIRECTED triamcinolone acetonide 0.1 % ointment 1 applic TOPICAL BID Patient Comments: APPLY OINTMENT TOPICALLY TO AFFECTED AREA TWICE DAILY Taltz Autoinjector 80 mg/mL auto-injector 80 mg SQ WEEKLY Referrals Follow up/Referrals: Alma Steven [Primary Care Provider] - See instructions Activity Restrictions/Add. Instructions Additional Instructions/Restrictions: Start antibiotic patient to take as ordered for a full length of time even if you feel better. Sinus infections do not get better overnight. It may take 2-3 days to notice much improvement so be sure to use conservative measures as discussed for symptoms. Flonase 1 spray each nostril daily to help with nasal congestion, sinus and ear pressure/information Increase fluids Humidifier/vaporizer as needed Tylenol and ibuprofen as needed for fever or pain. If symptoms do not improve or get worse return or be seen in the ER Follow-up with primary care this week Clinical Impressions Clinical Impression: Sinusitis Instructions Patient Instructions: DI for Sinusitis Discharge ED Provider: Brook ([facility])Deborah [facility] HPI General Stated complaint: sobia, runny nose Mode of Arrival: Ambulatory Source of Information: Patient Limitations: No Limitations Time Seen by Provider: 02/25/24 09:52 Description of Symptoms (Recalled from Triage Doc. by RN): PATIENT C/O PRODUCTIVE COUGH AND HEAD/CHEST CONGESTION X 5 DAYS HEENT Symptoms (Recalled from RN notes): Yes Resp Symptoms (Recalled from RN notes): Yes Skin Symptoms (Recalled from RN notes): No MS Symptoms (Recalled from RN notes): No Functional Status (Recalled from RN notes): WNL History of Present Illness Provider Complaint: 53 yr old female presents for sinus pressure, sinus tenderness, cough, green drainage and congestion since tues and getting worse Related Data Home Medications Medication Instructions Recorded Confirmed aspirin 81 mg tablet,delayed 81 mg PO DAILY Heart disease 07/10/18 02/25/24 release (Adult Low Dose Aspirin) bisoprolol fumarate 5 mg tablet 5 mg PO BID 02/25/24 02/25/24 furosemide 40 mg tablet 40 mg PO DAILYP PRN Edema 02/25/24 02/25/24 ixekizumab 80 mg/mL subcutaneous 80 mg SQ WEEKLY 02/25/24 02/25/24 auto-injector (SeatSwaprtz Autoinjector) triamcinolone acetonide 0.1 % 1 applic topical BID 02/25/24 02/25/24 topical ointment Previous Rx's Medication Instructions Recorded azithromycin 250 mg tablet 250 mg PO DIRECTED #6 tabs 02/25/24 fluticasone propionate 50 1 spray intranasal DAILY #9.9 mL 02/25/24 mcg/actuation nasal spray,suspension Allergies Allergy/AdvReac Type Severity Reaction Status Date / Time No Known Allergies Allergy Verified 11/09/23 13:42 Worker's Comp Is this a Worker's Comp case?: No [facility] Disclaimer: The information contained in this section may have been updated after the patient was seen, as this information can be updated by other users. 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) Smoking Status: Former smoker alcohol intake: never substance use type: denies use current occupational status: disabled Travel in the last 8 weeks: Inside the [place] household members: significant other caffeine: Yes ROS Obtained: Yes All systems reviewed & no additional complaints except as documented Constitutional Constitutional: Reports system reviewed and no additional complaints, except as documented Eyes Eyes: Reports system reviewed and no additional complaints, except as documented ENT Ears, Nose, Mouth, and Throat: Reports system reviewed and no additional complaints, except as documented, Reports nasal congestion, Reports nasal discharge, Reports post nasal drip, Reports sinus pain, Reports sinus pressure and Reports sore throat Cardiovascular Cardiovascular: Reports system reviewed and no additional complaints, except as documented Respiratory Respiratory: Reports system reviewed and no additional complaints, except as documented, Reports as per HPI, Reports change in phlegm color, Reports chest congestion and Reports cough Gastrointestinal Gastrointestingal: Reports system reviewed and no additional complaints, except as documented Musculoskeletal Musculoskeletal: Reports system reviewed and no additional complaints, except as documented Integumentary/Breasts Skin/Breast: Reports system reviewed and no additional complaints, except as documented Neurologic Neurologic: Reports system reviewed and no additional complaints, except as documented Endocrine Endocrine: Reports system reviewed and no additional complaints, except as documented Hematologic/Lymphatic Henatologic/Lymphatic: Reports system reviewed and no additional complaints, except as documented Allergic/Immunologic Allergic/Immunologic: Reports system reviewed and no additional complaints, except as documented Physical Exam General General appearance: alert and in no apparent distress Head Head exam: atraumatic and normocephalic Eye Eye exam: Present normal appearance ENT ENT exam: Present mucous membranes moist and TM's normal bilaterally Expanded ENT Exam Nose exam: Present sinus tenderness Respiratory Respiratory exam: Present normal lung sounds bilaterally Cardiovascular Cardiovascular exam: Present regular rate and normal rhythm Neurological Exam Neurological exam: Present alert and oriented X3 Skin Skin exam: Present warm and intact Lymphatic Lymphatic Findings: no adenopathy Medical Decision Making Medical Records Medical records reviewed: Yes I reviewed the patient's medical records. Jeffy Inquiry Pt receiving controlled substance: No Jeffy was queried for this patient: No Vital Signs: 02/25/24 09:25 Temperature 98.1 F Temperature Source Oral Pulse Rate [Left Brachial] 74 Respiratory Rate 19 Blood Pressure [Left Arm] 132/72 Blood Pressure Mean [Left Arm] 92 Blood Pressure Source [Left Arm] Automatic Cuff Blood Pressure Position [Left Arm] Sitting 02 Sat by Pulse Oximetry 98 Oxygen Delivery Method Room Air
[2024-02-25 10:06] VITALS: BP 132/72; PULSE 74; RESP 19; TEMP 36.7; O2SAT 98
== END 2024-02-25 10:09 | disposition home or self-care (01) ==
PROVIDERS: Emergency Provider Nurse Practitioner Family; PCP Nurse Practitioner Family
DX: J01.90 Acute sinusitis, unspecified (principal); R05.9 Cough, unspecified; R09.81 Nasal congestion; Z87.891 Personal history of nicotine dependence
CPT/HCPCS: 99212; 99214; G0463

== ENCOUNTER 2024-05-16 16:09 | Outpatient (CLI) | payer MEDICARE, MEDICAID, SELFPAY ==
[2024-05-16 12:36] LABS: Microscopic, Urine URINE MICROSCOPIC (MICROSCOPIC)
[2024-05-16 12:55] LABS: Basophils % 0.4 % (0.1-2.0); Eosinophils # 0.1 K/mm3 (0.0-0.4); Eosinophils % 1.7 % (0.1-12.0); Hemoglobin 13.1 g/dL (12.2-16.2); Lymphocytes # 2.1 K/mm3 (0.7-4.5); Lymphocytes % 26.2 % (10-50); Mean Corpuscular HGB Conc 31.9 g/dL (31.8-35.4); Mean Corpuscular Hemoglobin 29.6 pg (27.0-31.2); Mean Corpuscular Volume 92.7 fl (81-99); Mean Platelet Volume 9.6 fl (7.4-10.4); Monocytes # 0.3 K/mm3 (0.1-1.0); Monocytes % 3.3 % (1.7-9.3); Neutrophils # 5.5 K/mm3 (1.8-7.8); Neutrophils % 68.5 % (37.0-80.0); Platelet Count 267 K/mm3 (142-424); Red Blood Count 4.43 M/mm3 (4.20-5.40); Red Cell Distribution Width 13.6 % (11.5-17.5)
[2024-05-16 13:16] LABS: Albumin Level 4.5 g/dl (3.5-5.0); Chloride 103 mmol/L (98-107); Sodium 139 mmol/L (136-145)
[2024-05-16 13:17] LABS: Potassium 4.5 mmoL/L (3.5-5.1)
[2024-05-16 13:19] LABS: Alanine Aminotransferase 22 U/L (12-78); Albumin/Globulin Ratio 1.6 (1.1-1.8); Alkaline Phosphatase 106 U/L (38-126); Anion Gap 12.5 mEq/L (5-15); Aspartate Amino Transferase 27 U/L (14-36); Bilirubin,Total 0.6 mg/dl (0.2-1.3); Blood Urea Nitrogen 8 mg/dl (7-17); Carbon Dioxide 28 mmol/L (22.0-30.0); Estimated Glomerular Filt Rate 87 ml/min (>60); GFR (African American) 105 ML/MIN (>60); Globulin 2.9 g/dL (1.3-3.2); Total Protein,Serum 7.4 g/dl (6.3-8.2)
[2024-05-16 13:20] LABS: Calcium 9.1 mg/dl (8.4-10.2); Chol/HDL Ratio 4.2 (1-3.5); Cholesterol 151 mg/dl (140-200); Glucose 137 mg/dl (74-100); HDL Cholesterol 36 mg/dl (40-60); Iron 71 ug/dL (37-170); Triglycerides 191 mg/dl (30-150); VLDL Cholesterol 38 mg/dL (0-40)
[2024-05-16 13:21] LABS: Hemoglobin A1C 6.8 % (4.0-6.0)
[2024-05-16 13:29] LABS: Total Iron Binding Capacity 402 ug/dL (265-497)
[2024-05-16 13:31] LABS: Direct LDL Cholesterol 80.59 mg/dL (100-129)
[2024-05-16 13:36] LABS: Free T4 (Free Thyroxine) 1.08 ng/dl (0.78-2.19)
[2024-05-16 13:38] LABS: 25-OH Vitamin D, Total 24.3 ng/mL (30-100)
[2024-05-16 15:10] LABS: Creatinine,Urine Random 130 mg/dL (Not Estab.); Total Protein,Urine Random < 5.0 mg/dL (0.0-12.0)
[2024-05-16 15:11] LABS: Appearance,Urine CLEAR (Clear); Bilirubin,Urine Negative (Negative); Blood, Urine TRACE-I (Negative); Color,Urine YELLOW (Yellow); Glucose,Urine (UA) Negative (Negative); Ketones,Urine Negative (Negative); Leukocyte Esterase,Urine Negative (Negative); Nitrate,Urine Negative (Negative); PH,Urine 8.5 (5.0-8.5); Protein,Urine Negative (Negative); Specific Gravity, Urine >= 1.030 (1.005-1.030)
[2024-05-16 15:14] LABS: Microalbumin < 6.000 mg/L (0-16.7)
[2024-05-16 15:15] LABS: Bacteria,Urine Trace /lpf; Squamous Epithelial Cell,Urine Occasional #/hpf (0-5); WBC,Urine Occasional #/hpf (0-3)
[2024-05-16 16:41] LABS: Thyroid Stimulating Hormone 1.78 uIU/mL (0.465-4.68)
[2024-05-16 16:45] LABS: Ferritin 59.6 ng/ml (11.1-264)
[2024-05-16 18:21] LABS: Vitamin B12 184 pg/mL (239-931)
[2024-05-17 09:38] LABS: HCV Ab Non Reactive (Non Reactive)
[2024-05-17 11:00] LABS: HIV (1&2) Antibody Rapid NONREACTIVE (NONREACTIVE)
== END 2024-05-16 23:59 | disposition home or self-care (01) ==
LOC: LAB.DROPOF 16:09
PROVIDERS: PCP Nurse Practitioner Family; Visit Provider Nurse Practitioner Family
DX: L81.8 Other specified disorders of pigmentation (principal); R53.83 Other fatigue; E55.9 Vitamin D deficiency, unspecified; E11.9 Type 2 diabetes mellitus without complications; Z79.84 Long term (current) use of oral hypoglycemic drugs; Z11.4 Encounter for screening for human immunodeficiency virus [HIV]; Z11.59 Encounter for screening for other viral diseases
CPT/HCPCS: 80050; 80053; 80061; 81001; 82043; 82306; 82570; 82607; 82728; 83036; 83540; 83550; 84156; 84439; 84443; 85025; 87086

== ENCOUNTER 2024-10-23 09:03 | Outpatient (CLI) | payer MEDICARE, MEDICAID, SELFPAY ==
[2024-10-23 09:31] LABS: Basophils % 0.4 % (0.1-2.0); Eosinophils # 0.1 K/mm3 (0.0-0.4); Eosinophils % 1.6 % (0.1-12.0); Hematocrit 39.5 % (37.0-47.0); Hemoglobin 12.8 g/dL (12.2-16.2); Lymphocytes # 2.5 K/mm3 (0.7-4.5); Lymphocytes % 31.3 % (10-50); Mean Corpuscular HGB Conc 32.4 g/dL (31.8-35.4); Mean Corpuscular Hemoglobin 28.1 pg (27.0-31.2); Mean Corpuscular Volume 86.8 fl (81-99); Mean Platelet Volume 10.4 fl (7.4-10.4); Monocytes # 0.4 K/mm3 (0.1-1.0); Monocytes % 4.4 % (1.7-9.3); Neutrophils # 4.9 K/mm3 (1.8-7.8); Platelet Count 222 K/mm3 (142-424); Red Blood Count 4.55 M/mm3 (4.20-5.40); White Blood Count 7.9 K/mm3 (4.8-10.8)
[2024-10-23 09:55] LABS: Albumin Level 4.2 g/dl (3.5-5.0); Chloride 101 mmol/L (98-107); Potassium 4.5 mmoL/L (3.5-5.1); Sodium 140 mmol/L (136-145)
[2024-10-23 09:58] LABS: Alanine Aminotransferase 25 U/L (12-78); Albumin/Globulin Ratio 1.7 (1.1-1.8); Alkaline Phosphatase 88 U/L (38-126); Anion Gap 14.5 mEq/L (5-15); Aspartate Amino Transferase 27 U/L (14-36); Bilirubin,Total 0.7 mg/dl (0.2-1.3); Blood Urea Nitrogen 12 mg/dl (7-17); Calcium 9.2 mg/dl (8.4-10.2); Carbon Dioxide 29 mmol/L (22.0-30.0); Estimated Glomerular Filt Rate 87 ml/min (>60); GFR (African American) 105 ML/MIN (>60); Globulin 2.5 g/dL (1.3-3.2); Glucose 156 mg/dl (74-100); Total Protein,Serum 6.7 g/dl (6.3-8.2)
[2024-10-25 15:22] LABS: QuantiFERON-TB Gold Plus Negative (Negative)
== END 2024-10-23 23:59 | disposition home or self-care (01) ==
LOC: LAB 09:04
PROVIDERS: PCP Nurse Practitioner Family; Visit Provider Dermatology
DX: L40.0 Psoriasis vulgaris (principal); Z79.899 Other long term (current) drug therapy
CPT/HCPCS: 36415; 80053; 85025; 86480

== ENCOUNTER 2025-02-20 14:56 | Outpatient (CLI) | payer MEDICARE, MEDICAID, SELFPAY ==
[2025-02-20 12:21] LABS: Microscopic, Urine URINE MICROSCOPIC (MICROSCOPIC)
[2025-02-20 13:17] LABS: Appearance,Urine CLEAR (Clear); Bilirubin,Urine Negative (Negative); Blood, Urine TRACE-I (Negative); Color,Urine YELLOW (Yellow); Glucose,Urine (UA) Negative (Negative); Ketones,Urine Negative (Negative); Leukocyte Esterase,Urine Negative (Negative); Nitrate,Urine Negative (Negative); Protein,Urine Negative (Negative); Specific Gravity, Urine 1.025 (1.005-1.030); Urobilinogen,Urine 0.2 EU/dl (0.2)
[2025-02-20 13:18] LABS: Basophils # 0.1 K/mm3 (0-0.2); Basophils % 0.5 % (0.1-2.0); Eosinophils # 0.3 Kmm3 (0.0-0.4); Eosinophils % 2.7 % (0.1-12.0); Hematocrit 40.8 % (37.0-47.0); Hemoglobin 12.9 g/dL (12.2-16.2); Immature Granulocytes # 0.04 10^3uL; Immature Granulocytes % 0.4 %; Lymphocytes # 3.1 K/mm3 (0.7-4.5); Lymphocytes % 28.5 % (10-50); Mean Corpuscular HGB Conc 31.6 g/dL (31.8-35.4); Mean Corpuscular Hemoglobin 27.5 pg (27.0-31.2); Mean Platelet Volume 10.4 fl (7.4-10.4); Monocytes # 0.5 K/mm3 (0.1-1.0); Monocytes % 4.3 % (1.7-9.3); Neutrophils % 63.6 % (37.0-80.0); Nucleated Red Blood Cells # 0 10^3/uL; Nucleated Red Blood Cells % 0 %; Platelet Count 217 K/mm3 (142-424); Red Blood Count 4.69 M/mm3 (4.20-5.40); Red Cell Distribution Width 13.8 % (11.5-17.5); Red Cell Distribution Width-SD 43.3 fL; White Blood Count 10.9 K/mm3 (4.8-10.8)
[2025-02-20 13:24] LABS: Creatinine,Urine Random 139 mg/dL (Not Estab.)
[2025-02-20 13:27] LABS: Microalbumin/Creatinine Ratio 6.7; Squamous Epithelial Cell,Urine Occasional #/hpf (0-5); WBC,Urine Occasional #/hpf (0-3)
[2025-02-20 13:28] LABS: Bacteria,Urine Trace /lpf
[2025-02-20 13:55] LABS: Albumin Level 3.9 g/dl (3.5-5.0)
[2025-02-20 13:56] LABS: Chloride 104 mmol/L (98-107); Potassium 4.2 mmoL/L (3.5-5.1); Sodium 141 mmol/L (136-145)
[2025-02-20 13:58] LABS: Alanine Aminotransferase 29 U/L (12-78); Alkaline Phosphatase 100 U/L (38-126); Anion Gap 11.2 mEq/L (5-15); Aspartate Amino Transferase 26 U/L (14-36); Bilirubin,Total 0.9 mg/dl (0.2-1.3); Blood Urea Nitrogen 13 mg/dl (7-17); Carbon Dioxide 30 mmol/L (22.0-30.0); Estimated Glomerular Filt Rate 87 ml/min (>60); GFR (African American) 105 ML/MIN (>60); Iron 82 ug/dL (37-170)
[2025-02-20 13:59] LABS: Albumin/Globulin Ratio 1.5 (1.1-1.8); Calcium 8.8 mg/dl (8.4-10.2); Chol/HDL Ratio 3.3 (1-3.5); Cholesterol 132 mg/dl (140-200); Globulin 2.6 g/dL (1.3-3.2); Glucose 137 mg/dl (74-100); HDL Cholesterol 40 mg/dl (40-60); Total Protein,Serum 6.5 g/dl (6.3-8.2); Triglycerides 157 mg/dl (30-150); VLDL Cholesterol 31 mg/dL (0-40)
[2025-02-20 14:09] LABS: 25-OH Vitamin D, Total 42.3 ng/mL (30-100); Total Iron Binding Capacity 387 ug/dL (265-497)
[2025-02-20 14:19] LABS: Free T4 (Free Thyroxine) 1.13 ng/dl (0.78-2.19)
[2025-02-20 14:32] LABS: Thyroid Stimulating Hormone 3.45 uIU/mL (0.465-4.68)
[2025-02-20 14:36] LABS: Ferritin 33.1 ng/ml (11.1-264)
[2025-02-20 15:17] LABS: Hemoglobin A1C 7.3 % (4.0-6.0)
[2025-02-20 15:56] LABS: Vitamin B12 240 pg/mL (239-931)
== END 2025-02-20 23:59 | disposition home or self-care (01) ==
LOC: LAB.DROPOF 14:56
PROVIDERS: PCP Nurse Practitioner Family; Visit Provider Nurse Practitioner Family
DX: G47.33 Obstructive sleep apnea (adult) (pediatric) (principal); I25.10 Atherosclerotic heart disease of native coronary artery without angina pectoris; E11.9 Type 2 diabetes mellitus without complications; I10 Essential (primary) hypertension; E78.5 Hyperlipidemia, unspecified; R41.3 Other amnesia
CPT/HCPCS: 80053; 80061; 81001; 82043; 82306; 82570; 82607; 82728; 83036; 83540; 83550; 84156; 84439; 84443; 85025; 87086

== ENCOUNTER 2025-03-06 09:42 | Outpatient (CLI) | payer MEDICARE, MEDICAID, SELFPAY ==
--- OUTSIDE RECORDS SUMMARY | 2025-03-06 09:45 | XMS_ITS | Encounter Summary ---
Author Organization [facility] Address [address] [place] [address] Care Team Providers Care Aircraft Powerplant Repairer Name Role Phone Ana Edwards APRN Primary Care Provider [phone] Reason for Visit * Reason Comments Med Refill Encounter Details Date Type Department Care Team (Late st Contact Info) Description 06/13/2024 Refill [facility] [address] [place] [address] Alma Steven APRN [address] [place] [address] Type 2 diabetes mellitus with hyperglycemia, without long-term current use of insulin ([facility]) Social History Tobacco Use Types Packs/Day Years Used Date Smoking Tobacco: Former Cigarettes 1 2017 Smokeless Tobacco: Never PHQ-2 Answer Date Recorded Patient Health Questionnaire-2 Score 0 02/16/2023 PHQ-2A Answer Date Recorded Patient Health Questionnaire-2 Score 0 02/16/2023 Comments Unknown Sex and Gender Information Value Date Recorded Sex Assigned at Not on file Legal Sex Female 7:29 PM EDT Gender Identity Not on file Sexual Orientation Not on file documented as of this encounter Miscellaneous Notes * Telephone Encounter - Loni Quinones - 06/14/2024 2:50 PM EDT Left detailed message with patient she would need to schedule an appointment in clinic for refill documented in this encounter Plan of Treatment Not on file documented as of this encounter Visit Diagnoses Diagnosis Type 2 diabetes mellitus with hyperglycemia, without long-term current use of insulin ([facility]) documented in this encounter Additional Health Concerns Assessment Noted Time A fall risk assessment has been complete d for the patient 02/16/2023 12:47 PM EDT A Body Mass Index follow-up plan has been documented for the patient 02/18/2023 4:36 PM EDT documented as of this encounter Care Teams Aircraft Powerplant Repairer Relationship Specialty Start Date End Date Ana Edwards, FRONT END ENGINEER [address] [place] [address] PCP - General Family Medicine 01/19/23 documented as of this encounter
--- OUTSIDE RECORDS SUMMARY | 2025-03-06 09:45 | XMS_ITS | Clinical Summary ---
Author Organization [facility] Address [address] [place] [address] Care Team Providers Care Guest Service Agent Name Role Phone Unavailable Primary Care Provider Unavailabl e Social History Tobacco Use Types Packs/Day Years Used Date Smoking Tobacco: Never Assessed Comments Unknown Sex and Gender Information Value Date Recorded Sex Assigned at Not on file Legal Sex Female 3:29 PM CDT Gender Identity Not on file Sexual Orientation Not on file Plan of Treatment Not on file
--- OUTSIDE RECORDS SUMMARY | 2025-03-06 09:45 | XMS_ITS | Referral Summary ---
Author Organization [facility] Address [address] [place] [address] Care Team Providers Care Metaphysics Teacher Name Role Phone Unavailable Primary Care Provider [...]
--- OUTSIDE RECORDS SUMMARY | 2025-03-06 09:45 | XMS_ITS ---
Author Organization Unknown TREATMENT PLAN [facility] Start Date Provider Encounter for Check-up [id number] [facility]
--- OUTSIDE RECORDS SUMMARY | 2025-03-06 09:45 | XMS_ITS | Clinical Summary ---
Author Organization [facility] Address [address] [place] [address] Care Team Providers Care Visiting Housekeeper Name Role Phone Ana Edwards APRN Primary Care Provider [phone] Allergies No known active allergies Medications triamcinolone (Kenalog) 0.1 % ointment APPLY OINTMENT TOPICALLY TO AFFECTED AREA TWICE DAILY 2 Active spironolactone (Aldactone) 25 MG tablet Take 25 mg by mouth 1 (one) time each day. 2 Active Entresto 24-26 MG tablet Take 1 tablet by mouth 2 (two) times a day. 2 Active furosemide (Lasix) 40 MG tablet TAKE 1 TABLET BY MOUTH ONCE DAILY NEEDED FOR EDEMA 2 Active bisoprolol (Zebeta) 5 MG tablet TAKE 1 TABLET BY MOUTH IN THE MORNING AND 1 & 1/2 (ONE & ONE-HALF) IN THE EVENING 3 Active benzonatate (Tessalon) 100 MG capsule TAKE 1 CAPSULE BY MOUTH THREE TIMES DAILY NEEDED FOR COUGH 2 Active atorvastatin (Lipitor) 80 MG tablet Take 80 mg by mouth every night. 2 Active methocarbamol (Robaxin) 500 MG tabletIndicatio ns:Closed fracture of spinous process of cervical vertebra, subsequent encounter,Neck pain Take 1 tablet (500 mg) by mouth 4 (four) times a day for 10 days. 40 tablet 2 3 Active metFORMIN (Glucophage) 500 MG tabletIndicatio ns:Type 2 diabetes mellitus with hyperglycemia, without long-term current use of insulin ([facility]) Take 1 tablet (500 mg) by mouth 2 (two) times a day with meals. 180 tablet 4 Active Active Problems Problem Noted Date Diagnosed Date Chronic systolic congestive heart failure 2020 Dizziness 11/18/2020 ICD (implantable cardioverter-defibrillator), du al, in situ 11/18/2020 Dysfunction of left eustachian tube 01/14/2020 Cardiomyopathy, dilated, nonischemic 08/21/2018 Controlled type 2 diabetes mellitus 08/21/2018 Psoriasis 08/16/2018 Immunizations Immunization Administration Dates Next Due Hep A, Adult 02/14/2019,08/16/2018 Influenza, injectable, quadr ivalent, preservative free 08/08/2021,07/27/2019,08/16/2018 Family History 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 Relation Name Comments Heart attack Father Heart failure Father Heart disease Mother Kidney disease Mother Relation Name Status Comments Father Mother Social History Tobacco Use Types Packs/Day Years Used Date Smoking Tobacco: Former Cigarettes 1 15 2 2017 Smokeless Tobacco: Never Tobacco Cessation:Counseling Given: Not Answered PHQ-2 Answer Date Recorded Patient Health Questionnaire-2 Score 0 02/16/2023 PHQ-2A Answer Date Recorded Patient Health Questionnaire-2 Score 0 02/16/2023 Comments Unknown Sex and Gender Information Value Date Recorded Sex Assigned at Not on file Legal Sex Female 7:29 PM EDT Gender Identity Not on file Sexual Orientation Not on file Last Filed Vital Signs Vital Sign Reading Time Taken Comments Blood Pressure 142/83 02/16/2023 12:46 PM EDT Pulse 74 02/16/2023 12:46 PM EDT Temperature 37.1 C (98.8 F) 10/25/2022 9:32 AM EST Respiratory Rate 16 02/16/2023 12:46 PM EDT Oxygen Saturation 98% 01/19/2023 8:20 AM EDT Inhaled Oxygen Concentration - - Weight 88.5 kg (195 lb) 02/16/2023 12:46 PM EDT Height 167.6 cm (5' 6 ) 02/16/2023 12:46 PM EDT Body Mass Index 31.47 02/16/2023 12:46 PM EDT Plan of Treatment Health Maintenance Due Date Last Done Comments [facility]-HIV Screening 1968 [facility]-Hepatitis C Screening 1968 [facility]-Medicare Annual Wellness (AWV) 1968 [facility]-/Child/Adol SDOH Screenings 1968 Diabetes: Dental Exam 1978 [facility]- SDOH Screenings 1986 [facility]-Adult SDOH Screenings 1986 [facility]-DTaP,Tdap,and Td Vaccine s (1 - Tdap) 1987 [facility]-Hepatitis B Vaccines (1 of 3 - 19+ 3-dose series) 1987 [facility]-Pneumococcal Vaccine: 50 + Years (1 of 2 - PCV) 1987 [facility]-Pap Smear 1989 [facility]-Cervical Cancer Screening 1998 [facility]-HPV/Cotest 1998 CT Colonography 2013 Colonoscopy 2013 FIT-DNA 2013 FIT 2013 FOBT 2013 Sigmoidoscopy 2013 [facility]-Colorectal Cancer Screening 2013 [facility]-Zoster Vaccines (1 of 2) 2018 [facility]-Breast Cancer Screening 09/21/202111/2019, 09/21/2019 [facility]-Diabetes: Hemoglobin A1C 07/19/2023 01/19/2023 [facility]-Depression Screening 02/17/2024 02/16/2023 [id number] Vaccine ( season) 2024 11/09/2022, 08/08/2021, 11/26/2020 [facility]-Influenza Vaccine (Seaso n Ended) 2025 08/08/2021, 07/27/2019, 08/16/2018 [facility]-Hepatitis A Vaccines Aged Out 019, 08/16/2018 No longer eligible based on patient's age to complete this topic [facility]-Obesity Intervention Completed 023, 01/19/2023, 10/25/2022 HPV Vaccines Aged Out No longer eligi ble based on patient's age to complete this topic [facility]-HIB Vaccines Aged Out No longer e ligible based on patient's age to complete this topic [facility]-IPV Vaccines Aged Out No longer e ligible based on patient's age to complete this topic [facility]-Rotavirus Vaccines Aged Out No lo nger eligible based on patient's age to complete this topic Procedures Procedure Name Priority Date/Time Associated Diagnosis Comments HEMOGLOBIN A1C Add-On 01/19/2023 9:23 AM EDT Elevated serum glucose from Last 3 Months or Most Recently Relevant to Health Maintenance Results * (ABNORMAL) Hemoglobin A1c (01/19/2023 9:23 AM EDT) Hemoglobin A1c 7.5(H) <5.7 % 01/19/2023 5:35 PM EDT [facility] Blood Venous blood specimen / Unknown Venipuncture / Unknown 01/19/2023 9:23 AM EDT 01/19/2023 9:23 AM EDT Narrative [facility] - 01/19/2023 5:35 PM EDT HA1C Interpretive Data: Diagnosis of Diabetes: Diabetic > or = 6.5% Pre-diabetic 5.7 to 6.4% Non-diabetic < or = 5.6% Glycemic Targets for Type I and Type II Diabetics: Non- Adults <7.0% Adults <6.0% Children and Adolescents <7.5% Source: [place] [employer]. Standards of medical care in diabetes,2017. Diabetes Care.2017:40 (suppl 1):S1-S135. HbA1c assay performed by an ion-exchange chromatography method that is certified traceable to the DCCT. Ana Edwards APRN LAB BLOOD ORDERABLES Final Result [facility] [address] [place] [phone] from Last 3 Months or Most Recently Relevant to Health Maintenance Insurance MEDICARE [facility] MEDICARE Care Teams Visiting Housekeeper Relationship Specialty Start Date End Date Ana Edwards APRN [facility] [place] [address] [place] [id number] PCP - General Family Medicine 01/19/23
--- NOTE | 2025-03-06 10:00 | MM_ITS ---
PROCEDURE INFORMATION: Exam: MG Bilateral Screening 3D Mammography Exam date and time: 03/06/2025 9:47 AM Age: 54 years old Clinical indication: Screening examination TECHNIQUE: Imaging protocol: Bilateral Screening tomosynthesis and 2D mammography including computer-aided detection (CAD) when performed. COMPARISON: 1. MG MY Digital Screen BILAT 09/21/2019 1:12 PM 2. MG MY Digital Screen BILAT 04/05/2017 9:24 AM FINDINGS: MAMMOGRAPHY: Breast composition: The breasts are almost entirely fatty. Mass: None. Architectural distortion: None. Calcifications: No suspicious calcifications. Asymmetric density: None. Skin thickening: None. Axillary adenopathy: None. IMPRESSION: No mammographic evidence of malignancy. Annual screening is recommended unless otherwise clinically indicated. ASSESSMENT: BI-RADS Category 1: Negative.
== END 2025-03-06 23:59 | disposition home or self-care (01) ==
LOC: RAD 09:42
PROVIDERS: PCP Nurse Practitioner Family; Visit Provider Nurse Practitioner Family
DX: Z12.31 Encounter for screening mammogram for malignant neoplasm of breast (principal); R92.313 Mammographic fatty tissue density, bilateral breasts
CPT/HCPCS: 77063; 77067

== ENCOUNTER 2025-03-08 08:47 | Outpatient (CLI) | payer MEDICARE, MEDICAID, SELFPAY ==
--- OUTSIDE RECORDS SUMMARY | 2025-03-08 08:49 | XMS_ITS | Clinical Summary ---
Author Organization [facility] Address [address] [place] [address] Care Team Providers Care It Desktop Support Technician Name Role Phone Unavailable Primary Care Provider [...]
--- OUTSIDE RECORDS SUMMARY | 2025-03-08 08:49 | XMS_ITS | Referral Summary ---
Author Organization [facility] Address [address] [place] [address] Care Team Providers Care Director [employer] Name Role Phone Unavailable Primary Care Provider [...]
--- OUTSIDE RECORDS SUMMARY | 2025-03-08 08:49 | XMS_ITS | Encounter Summary ---
Author Organization [facility] Address [address] [place] [address] Care Team Providers Care Credit Card Interviewer Name Role Phone Ana Edwards APRN Primary Care Provider [phone] Reason for Visit * Reason Comments Med Refill Encounter Details Date Type Department Care Team (Late st Contact Info) Description 06/13/2024 Refill [facility] [address] [place] [address] Alma Steven APRN [address] [place] [address] Type 2 diabetes mellitus with hyperglycemia, without long-term current use of insulin ([facility]) Social History Tobacco Use Types Packs/Day Years [...] hyperglycemia, without long-term current use of insulin ([facility]) documented in this encounter Additional Health Concerns Assessment Noted Time A fall risk assessment has been complete d for the patient 02/16/2023 12:47 PM EDT A Body Mass Index follow-up plan has been documented for the patient 02/18/2023 4:36 PM EDT documented as of this encounter Care Teams Credit Card Interviewer Relationship Specialty Start Date End Date Ana Edwards, EMBEDDED SOFTWARE DEVELOPER [address] [place] [address] PCP - General Family Medicine 01/19/23 documented as of this encounter
--- OUTSIDE RECORDS SUMMARY | 2025-03-08 08:49 | XMS_ITS | Clinical Summary ---
Author Organization [facility] Address [address] [address] Care Team Providers Care Bomb Squad Officer Name Role Phone Ana Edwards APRN Primary Care Provider [phone] Allergies No known active allergies Medications triamcinolone [...] hyperglycemia, without long-term current use of insulin ([facility]) Take 1 tablet (500 mg) by [...] A1C 07/19/2023 01/19/2023 [facility]-Depression Screening 02/17/2024 02/16/2023 [id number] Vaccine ( season) 2024 11/09/2022, 08/08/2021, 11/26/2020 [...] Adults <6.0% Children and Adolescents <7.5% Source: [place] [employer]. Standards of medical care in diabetes,2017. Diabetes Care.2017:40 (suppl 1):S1-S135. HbA1c assay performed by an ion-exchange chromatography method that is certified traceable to the DCCT. Ana Edwards APRN LAB BLOOD ORDERABLES Final Result [facility] [address] [place] [phone] from Last 3 Months or Most Recently Relevant to Health Maintenance Insurance MEDICARE [facility] MEDICARE Care Teams Bomb Squad Officer Relationship Specialty Start Date End Date Ana Edwards APRN [facility] [place] [address] [phone] PCP - General Family Medicine 01/19/23
--- NOTE | 2025-03-08 09:00 | CT_ITS ---
FINAL REPORT TECHNIQUE: Thin section axial images were obtained through the lungs using a low-dose technique per lung cancer screening protocol. Reconstruction images were obtained using the axial data. Exam was performed using dose reduction technique. This study was performed with techniques to keep radiation doses as low as reasonably achievable (ALARA). Individualized dose reduction techniques using automated exposure control or adjustment of mA and/or kV according to the patient's size were employed. CLINICAL HISTORY: lung cancer screening former smoker quite 13 years ago smoked for 25 years 1 ppd chf COMPARISON: None FINDINGS: CTDLvol: 2.90 DLP: 96.38 Former smoker, quit 13 years ago 25 pack year history Lungs: No acute pulmonary abnormality. No suspicious nodules. Lymph nodes: No thoracic lymphadenopathy. Mediastinum: Heart size is normal. Prominent coronary artery calcifications are present. Pleura/pericardium: No pleural or pericardial effusion. Other: No acute abnormality in the upper abdomen. IMPRESSION: No suspicious pulmonary nodule or mass. Lung RADS: 1S, the S designation for prominent coronary artery calcifications. Recommendation: 12-month follow-up LDCT Reviewed, Interpreted and Dictated by Johanny Ivey MD Transcribed by Taty Bland Authenticated and [facility]
== END 2025-03-08 23:59 | disposition home or self-care (01) ==
LOC: RAD 08:48
PROVIDERS: PCP Nurse Practitioner Family; Visit Provider Nurse Practitioner Family
DX: Z12.2 Encounter for screening for malignant neoplasm of respiratory organs (principal); I25.10 Atherosclerotic heart disease of native coronary artery without angina pectoris; Z87.891 Personal history of nicotine dependence
CPT/HCPCS: 71271

== ENCOUNTER 2025-05-31 09:12 | Outpatient (CLI) | payer MEDICARE, MEDICAID, SELFPAY ==
--- OUTSIDE RECORDS SUMMARY | 2025-05-31 09:15 | XMS_ITS | Clinical Summary ---
Author Organization [facility] Address [address] [place] [address] Care Team Providers Care Heel Coverer Machine Operator Name Role Phone Ana Edwards APRN Primary Care Provider [phone] Allergies No known active allergies Medications triamcinolone [...] hyperglycemia, without long-term current use of insulin ([facility]) Take 1 tablet (500 mg) by [...] A1C 07/19/2023 01/19/2023 [facility]-Depression Screening 02/17/2024 02/16/2023 [id number] Vaccine ( season) 2025 11/09/2022, 08/08/2021, 11/26/2020 [facility]-Influenza Vaccine (#1) 05/20/202508/08, 07/27/2019, 08/16/2018 [facility]-Hepatitis A Vaccines Aged Out [...] Adults <6.0% Children and Adolescents <7.5% Source: [place] [employer]. Standards of medical care in diabetes,2017. Diabetes Care.2017:40 (suppl 1):S1-S135. HbA1c assay performed by an ion-exchange chromatography method that is certified traceable to the DCCT. Ana Edwards APRN LAB BLOOD ORDERABLES Final Result [facility] [address] [place] [phone] from Last 3 Months or Most Recently Relevant to Health Maintenance Insurance [place] [place] [address] MEDICARE Care Teams Heel Coverer Machine Operator Relationship Specialty Start Date End Date Ana Edwards APRN [facility] [place] [place] [address] [place] [phone] PCP - General Family Medicine 01/19/23
--- OUTSIDE RECORDS SUMMARY | 2025-05-31 09:15 | XMS_ITS | Encounter Summary ---
Author Organization [facility] Address [address] [place] [address] Care Team Providers Care Pre Press Proofer Name Role Phone Ana Edwards APRN Primary Care Provider [phone] Reason for Visit * Reason Comments Med Refill Encounter Details Date Type Department Care Team (Late st Contact Info) Description 06/13/2024 Refill [facility] [address] [place] [address] Alma Steven APRN [address] [place] [address] Type 2 diabetes mellitus with hyperglycemia, without long-term current use of insulin ([facility]) Social History Tobacco Use Types Packs/Day Years [...] without long-term current use of insulin ([facility]) documented in this encounter Additional Health Concerns Assessment Noted Time A fall risk assessment has been complete d for the patient 02/16/2023 12:47 PM EDT A Body Mass Index follow-up plan has been documented for the patient 02/18/2023 4:36 PM EDT documented as of this encounter Care Teams Pre Press Proofer Relationship Specialty Start Date End Date Ana Edwards, COMMERCIAL ACCOUNTANT [address] [place] [address] PCP - General Family Medicine 01/19/23 documented as of this encounter
--- OUTSIDE RECORDS SUMMARY | 2025-05-31 09:15 | XMS_ITS | Clinical Summary ---
Author Organization [facility] Address [address] [place] [address] Care Team Providers Care Manager Personal Name Role Phone Alma Steven APRN Primary Care Provider Allergies No known active allergies Medications Taltz 80 MG/ML solution auto-injector Every 30 (Thirty) Days. 09/04/2020 Active bisoprolol (ZEBeta) 5 MG tablet Take 5 mg by mouth 2 (Two) Times a Day. 10/24/2020 Active furosemide (LASIX) 40 MG tablet Daily. 10/12/2020 Active spironolactone (ALDACTONE) 25 MG tablet Daily. 10/12/2020 Active atorvastatin (LIPITOR) 80 MG tablet Take 80 mg by mouth every night at bedtime. 08/26/2020 Active aspirin 81 MG EC tablet Take 81 mg by mouth Daily. Active Cetirizine HCl (KLS ALLER-MALI PO) Take by mouth Daily. Active sacubitril-valsa rtan (Entresto) 24-26 MG tablet Take 1 tablet by mouth 2 (Two) Times a Day. Active Active Problems Problem Noted Date Diagnosed Date Chronic systolic congestive heart failure 2020 Dizziness 11/18/2020 ICD (implantable cardioverter-defibrillator), myrna sneed, in situ 11/18/2020 Family History 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 Relation Name Comments Heart failure Father Heart disease Mother Kidney disease Mother Relation Name Status Comments Father Mother Alive Social History Tobacco Use Types Packs/Day Years Used Date Smoking Tobacco: Former Cigarettes 0 11/18/1981 - 11/19/2011 Smokeless Tobacco: Never Alcohol Use Standard Drinks/Week Comments Never 0 (1 standard drink = 0.6 oz pur e alcohol) AUDIT-C Answer Date Recorded Q1: How often do you have a drink containing alc ohol? Never 11/18/2020 Average Number of Drinks Not on file Frequency of Binge Drinking Not on file 10/2020 Abuse Screen Answer Date Recorded Unsafe at Home or Work/School Not on file Feels Threatened by Someone? Not on file 05/2023 Does Anyone Keep You from Co ntacting Others or Doint Things Outside the Home? Not on file 06/27/2023 Physical Sign of Abuse Present Not on file 1 Housing Stability Answer Date Recorded Current Living Arrangements Not on file 05/2023 Potentially Unsafe Housing Conditions Not on madhav e 06/27/2023 Family and Community Support Answer Frandy e Recorded Help with Day-to-Day Activities Not on file 06/27/2023 Lonely or Isolated Not on file 06/27/2023 Employment Answer Date Recorded Do you want help finding or keeping work or a raheem b? Not on file 06/27/2023 Disabilities Answer Date Recorded Concentrating, Remembering, or Making Decisions Difficulty Not on file 06/27/2023 Doing Errands Independently Difficulty Not on fi le 06/27/2023 Education Answer Date Recorded Help with school or training? Not on file Preferred Language Not on file 06/27/2023 Comments Unknown Sex and Gender Information Value Date Recorded Sex Assigned at Not on file Legal Sex Female 10:13 AM EDT Gender Identity Not on file Sexual Orientation Not on file Last Filed Vital Signs Vital Sign Reading Time Taken Comments Blood Pressure 118/78 11/18/2020 2:35 PM EST Pulse 60 11/18/2020 2:35 PM EST Temperature - - Respiratory Rate - - Oxygen Saturation - - Inhaled Oxygen Concentration - - Weight 93.6 kg (206 lb 6.4 oz) 11/18/2020 2:35 P M EST Height 167.6 cm (5' 6 ) 11/18/2020 2:35 PM EST Body Mass Index 33.31 11/18/2020 2:35 PM EST Plan of Treatment Health Maintenance Due Date Last Done Comments Annual Gynecologic Pelvic and Breast Exam 1968 TDAP/TD VACCINES (1 - Tdap) 1987 MAMMOGRAM 2008 COLOGUARD 2013 COLON CANCER SCREENING 5 YEAR SIGMOIDOSCOPY 2013 COLONOSCOPY [address] CANCER SCREENING 2013 CT COLONOGRAPHY 2013 FECAL OCCULT BLOOD TEST 2013 FIT Testing (1 year) 2013 Pneumococcal Vaccine 50+ (1 of 1 - PCV) 2018 ZOSTER VACCINE (1 of 2) 2018 ANNUAL PHYSICAL 11/18/2020 HEPATITIS C SCREENING 11/18/2020 COVID-19 Vaccine (1 - 2023- season) 2025 INFLUENZA VACCINE 06/19/2025 Insurance [facility] Care Teams Manager Personal Relationship Specialty Start Date End Date Alma Steven APRN [address] [place] [address] PCP - General Family Medicine 11/18/20
--- NOTE | 2025-05-31 09:30 | CA_ITS ---
APPROVED REPORT EXAM: Comprehensive 2D, Doppler, and color-flow Echocardiogram Custom Clothier: Violetta Zamora RT(R) Ht: 5 ft 6 in Wt: 192lbs BSA: 1.97 BP: 132/78 mmHg Indications: hx cardiomyopathy, EF 40% on echo 10/19/22 Echo Enhancing Agent Indication: Endocardial border delineation Agent(s) / Amount(s) Used: Definity 2 cc 2D Dimensions EF AP4 42.30 % GL Strain -10.0 % M-Mode Dimensions RVDd 1.47 cm (0.9-2.6) LA Diam 2.55 cm (1.9-4.0) LVDd 5.77 cm (3.5-5.7) LVDs 4.62 cm (3.5-5.7) IVSd 0.64 cm (0.6-1.1) PWd 0.64 cm (0.6-1.1) EF (Teich) 40.30% FS 19.90% EDV (Teich) 164.60 mL ESV (Teich) 98.30 mL LV Diastology E Decel Time 170 (160-240 msec) E/A Ratio 0.7 Mitral Valve MV E Max Riley. 66.0 (40-130 cm/s) MV A Velocity 95.0 (40-130 cm/s) E/A Ratio 0.70 MV PHT 50.0 ms Left Ventricle The left ventricle is normal size. Left ventricular systolic function is moderately reduced. There is normal left ventricular wall thickness. There is moderate global hypokinesis present. The inferior, inferoseptal, and septal LV redd are severely hypokinetic. Grade 1 diastolic dysfunction is present. No left ventricle thrombus noted on this study. LVEF is 30-35% Right Ventricle The right ventricle is normal size. The right ventricular systolic function is normal. Atria The left atrium is mildly dilated. The right atrium size is normal. There is no color Doppler evidence of interatrial shunt. Aortic Valve The aortic valve is mildly thickened. There is no hemodynamically significant aortic valvular stenosis. Mild aortic regurgitation is present. Mitral Valve The mitral valve is normal in structure. No evidence of mitral valve stenosis. Trace mitral regurgitation is present. Tricuspid Valve The tricuspid valve leaflets are thin and pliable. Trace tricuspid regurgitation. There is insufficient TR jet to estimate RVSP. Pulmonic Valve The pulmonary valve is grossly normal in structure. Trace pulmonic valve regurgitation is present. Great Vessels The aortic root is normal in size. IVC is normal in size and collapses >50% with inspiration. Pericardium There is no pericardial effusion. Other Information Study Quality: Technically Difficult Conclusion Moderate reduction in LV systolic function (LVEF 30-35%). The inferior, inferoseptal, and septal LV redd are severely hypokinetic. Grade 1 diastolic dysfunction. Mild LA dilation. Mild AI. Compared to prior study from 10/19/2022, the LV systolic function is further reduced. Electronically signed by : Marilyn Schmidt MD 06/03/2025 21:01:23
[2025-05-31] MEDS: DEFINITY US ECHO CONTRAST 2ML INJ 2 MG IV (10:22)
== END 2025-05-31 23:59 | disposition home or self-care (01) ==
LOC: RT 09:13
PROVIDERS: PCP Nurse Practitioner Family; Visit Provider Physician Assistant
DX: I35.1 Nonrheumatic aortic (valve) insufficiency (principal); I51.89 Other ill-defined heart diseases; I51.7 Cardiomegaly; I42.9 Cardiomyopathy, unspecified; I25.10 Atherosclerotic heart disease of native coronary artery without angina pectoris; I47.20 Ventricular tachycardia, unspecified; R93.1 Abnormal findings on diagnostic imaging of heart and coronary circulation; Z95.810 Presence of automatic (implantable) cardiac defibrillator
CPT/HCPCS: 93306; Q9957